=== PATIENT | female | born 1945 | race Caucasian/White ===

== ENCOUNTER 2023-09-22 16:55 | Emergency (ER) | payer OTHER, SELFPAY ==
[2023-09-22 16:57] VITALS: BP 145/93
[2023-09-22 17:34] LABS: % Eosinophils 2.5 % (0-6); % Immature Granulocytes 0.2 % (0-0.5); % Lymphocytes 24.5 % (20.5-51.1); % Monocytes 10.6 % (1.7-9.3); % Neutrophils 61.2 % (42.2-75.2); Absolute Basophils 0.1 10^3/uL (0-0.2); Absolute Eosinophils 0.2 10^3/uL (0-0.7); Absolute Lymphocytes 2.1 10^3/uL (1.2-3.4); Absolute Monocytes 0.9 10^3/uL (0.1-0.6); Absolute Neutrophils 5.2 10^3/uL (1.4-6.5); Hematocrit 32.7 % (37.0-47.0); Hemoglobin 10.7 g/dL (12.0-16.0); Mean Corp Hgb Conc. 32.7 g/dL (33.0-37.0); Mean Corpuscular Hgb 26.2 pg (27.0-31.0); Mean Platelet Volume 9.5 fL (7.4-10.4); Nucleated Red Blood Cells % 0 %; Platelet Count 325 10^3/uL (130-400); Red Blood Cell Count 4.09 10^6/uL (4.20-5.40); Red Cell Dist. Width 16.5 % (11.5-14.5); White Blood Cell Count 8.4 10^3/uL (4.8-10.8)
[2023-09-22 17:45] LABS: INR 1.05; PT 13.8 Sec (11.4-14.6)
[2023-09-22 17:51] LABS: ALT (SGPT) 20 U/L (0-35); AST (SGOT) 31 U/L (14-36); Albumin 4.5 g/dl (3.5-5.0); Alkaline Phosphatase 75 U/L (38-126); Blood Urea Nitrogen 17 mg/dl (7-17); Calcium 9.9 mg/dl (8.4-10.2); Carbon Dioxide 25 mmol/L (22-30); Chloride 102 mmol/L (98-107); Glucose 92 mg/dl (70-99); Potassium 4.5 mmol/L (3.5-5.1); Sodium 136 mmol/L (135-145); Total Bilirubin 0.6 mg/dl (0.2-1.3); Total Protein 7.2 g/dl (6.3-8.2); eGFR > 60.00
--- NOTE | 2023-09-22 18:33 | ED.GENMED ---
History of Present Illness
General
Chief Complaint: DVT/Possible Blood Clot
Source: patient
Exam Limitations: none
Time Seen by Provider: 09/22/23 17:56
History of Present Illness
History of Present Illness:
This is a 78 year old female that comes in with c/o left arm swelling. State that 2 days ago she started with swelling in the left arm. State that she had lymph edema in the past and she wear a sleeve. State that on Wednesday she went to get a message
of the left arm. States that she felt that there was fluid collection under the left arm at the base of her arm pit. Patient went to the Plastic surgeon and she was sent today to see erasmo Swenson. States that they did an exam and she used an US and
told her she was concerned that there was a clot in the left carotid. States that she was told to come to the ER for US of the left arm and CTA. States that she randolph diarrhea as she just found out that she has infections colitis. Denies any fever,
chills, chest pain, SOB, abd pain, nausea, vomiting, headache, dizziness, urinary burning,
Past History
Past History
ED Past Medical History: Hypercholesterolemia and Other (Coronary artery dissection, PE/DVT)
ED Past Surgical History: Appendectomy and Other (Bilateral mastectomy Breast implants and then removal, Neuromuscular stimulator)
Social History
Tobacco: Former smoker
Alcohol: None
Personal:
Living: with family
Review of Systems
Review of Systems
All Other Systems: ROS reviewed and negative except as documented in HPI and ROS
Constitutional: Reports no symptoms; Denies fever or chills
EENT: Reports no symptoms
Respiratory: Reports no symptoms; Denies cough or trouble breathing
Cardiac: Reports no symptoms; Denies chest pain
ABD/GI: Reports diarrhea; Denies abdominal pain, nausea or vomiting
: Reports no symptoms; Denies dysuria, frequency or urgency
Musculoskeletal: Reports edema (Left arm swelling)
Skin: Reports no symptoms
Neurological: Reports no symptoms; Denies dizzy or headache
Psychiatric: Reports no symptoms
Phy Exam
General Physical Exam
General Presentation: well appearing and no apparent distress
General age: appears stated age
General Skin: warm and dry
General Habitus: elderly
General Mental: alert
General Hydration: appears well hydrated
ENT Exam
ENT Exam: TM's normal, pharynx normal and neck supple
Eye Exam
Eye Exam: EOMI
Cardiovascular Exam
Cardiovascular Exam: regular rate/rhythm, no murmur and normal peripheral pulses
Pulmonary Exam
Pulmonary Exam: lungs clear, no respiratory distress, no rales, chest non tender, no crackles, no rhonchi, no wheezing and no cough
Gastrointestinal Exam
Gastrointestinal Exam: normal bowel sounds, non tender, soft, no organomegaly, no pulsatile mass and non distended
Musculoskeletal Exam
Musculoskeletal Exam: full ROM
Skin Exam
Skin Exam: normal color, warm/dry, no rash and no petechia
Psychiatric Exam
Psychiatric Exam: normal mood/affect
Course
Orders/Labs/Results
Orders:
Orders
09/22/23 17:02
Electrocardiogram (*1) Urgent
Reason for Study: Chest Pain
EKG- Treatment ONCE
09/22/23 17:28
Complete Blood Count/With Diff Urgent
Comprehensive Metabolic Panel Urgent
Prothrombin Time Urgent
09/22/23 18:32
CT Head & Neck Angio W/wo IV Urgent
Comment:
Reason For Exam: concern for occlusion left carotid
US Periph Venous UPPER Ext LT Urgent
Reason For Exam: Swelling
Abnormal Lab Results
09/22/23
17:28
RBC 4.09 L 10^6/uL
(4.20-5.40)
Hgb 10.7 L g/dL
(12.0-16.0)
Hct 32.7 L %
(37.0-47.0)
MCV 80.0 L fL
(81.0-99.0)
MCH 26.2 L pg
(27.0-31.0)
MCHC 32.7 L g/dL
(33.0-37.0)
RDW 16.5 H %
(11.5-14.5)
Absolute Monos (auto) 0.9 H 10^3/uL
(0.1-0.6)
Monocytes % 10.6 H %
(1.7-9.3)
09/22/23 17:28
09/22/23 17:28
H/H low. Anemia, Pt 13.8 with INR 1.05
Vital Signs
Initial and Last Documented VS:
Initial Vital Signs
Temp Pulse Resp BP Pulse Ox
97.8 F 92 20 145/93 97
09/22/23 16:57 09/22/23 16:57 09/22/23 16:57 09/22/23 16:57 09/22/23 16:57
Last Documented Vital Signs
Temp Pulse Resp BP Pulse Ox
97.8 F 92 20 145/93 97
09/22/23 16:57 09/22/23 16:57 09/22/23 16:57 09/22/23 16:57 09/22/23 16:57
MDM/Problems Addressed
Differential Diagnosis Includes:
DVT. carotid occlusion
MDM/Problems Addressed:
This is a 78 year old female that comes in with c/o left arm swelling in the past 2 days. states that she went to see Dr. Swenson and was sent in for US of the arm and CTA of the head and neck for concern of Eliquis failure.
Will get lab, US and CTA of head and neck.
Back into see patient. Explained that her US and CTA of the head is neck are normal. There is no sign of occlusion. Patient to follow up with Dr Swenson. Will attempt to call Dr. Swenson.
Unable to reach Dr. Swenson.
Chronic conditions affecting care:
PE/DVT, Coronary artery dissection
Acute Exacerbation and/or Progression of Chronic Illness:
NA
*Radiology
Radiology exam reviewed: radiology read reviewed (US left arm-No evidence of deep venous thrombosis in the left upper extremity. CTA head and neck-No significant vascular occlusion, Aneurysm or dissection. )
*Pulse Oximetry
Patient hypoxic: no
*EKG
Interpreted by ED Provider?: Yes
Heart Rate: 76
Rate: normal
Rhythm: sinus
[place]: normal axis
Interval: normal interval
QRS Pattern: normal QRS
Ischemia: no ischemia
*Surface Grinding Machine Hand Interpretation
Rate: Surface Grinding Machine Hand- N/A
*Critical Care Note
Total Time (30-74mins, 75-104mins- exclusive of procedures): Not Applicable
ED Attending Note
-
Portions of this chart may have been created with voice recognition software.� Occasional wrong word or��sound alike� substitutions may have occurred due to the inherent limitations of voice recognition software.
Discharge Plan
Departure
Patient Disposition: Home (Routine Discharge)
Date of Disposition: 09/22/23
Time of Disposition: 20:14
Patient with high blood pressure during this ER visit?: Yes
Condition: Good
Covid-19: Not Applicable
Discharge Problem:
Lymph edema left arm
Instructions: Lymphedema (DC), BLOOD PRESSURE
Prescriptions:
No Action
celecoxib 200 mg capsule
200 mg PO HS
atenolol 25 mg tablet
25 mg PO HS
cyanocobalamin (vitamin B-12) 1,000 mcg Tablet
1,000 mcg PO DAILY
levothyroxine 88 mcg tablet
88 mcg PO DAILY
pantoprazole 40 mg tablet,delayed release (DR/EC)
40 mg PO BID
Pepto-Bismol 262 mg Tablet
262 mg PO BID
zolpidem 5 mg tablet
5 mg PO HSPRN PRN (Reason: sleep)
diphenhydramine-acetaminophen [Tylenol PM Extra Strength] 25-500 mg Tablet
2 tab PO HS PRN (Reason: neuropathy)
rosuvastatin 5 mg tablet
5 mg PO HS
duloxetine 60 mg capsule,delayed release(DR/EC)
60 mg PO HS
Eliquis 2.5 mg tablet
2.5 mg PO BID
Referrals:
Ankita Gay, [Family Provider] - Call in 1-3 days for appt
Activity Restrictions/Additional Instructions:
As discussed, your blood work shows that you are anemic. Your US of the left arm is negative for DVT. Your CT angio of the head and neck is negative for any occlusion. Please follow up with Dr Swenson for further evaluation. You may need to wear your
sleve to help decrease the edema. IF YOU HAVE ANY OTHER CONCERNS PLEASE RETURN TO THE EMERGENCY ROOM.
Interventions
Interventions:
*Risk Screen - Suicide Last Done: 09/22/23 16:57
*General Assessment Last Done: 09/22/23 16:57
*Neglect/Abuse Screening Last Done: 09/22/23 16:57
ED- Fall Risk Assessment Last Done: 09/22/23 18:44
*ED COVID-19 Vaccine History Last Done: 09/22/23 18:43
ED- Cardiac Assessment Last Done: 09/22/23 18:44
ED- Pulmonary Assessment Last Done: 09/22/23 18:44
ED-Skin Assessment Last Done: 09/22/23 18:44
Discharge Date and Time
Print Language: FRENCH
[2023-09-22 18:43] VITALS: BMI 31.5
[2023-09-22 20:28] VITALS: BP 137/85
== END 2023-09-22 20:30 | disposition home or self-care (01) ==
LOC: EMR 16:55
PROVIDERS: Emergency Medicine; EMERGENCY PHYSICIAN Emergency Medicine; FAMILY PHYSICIAN Internal Medicine
DX: I89.0 Lymphedema, not elsewhere classified (principal); E78.00 Pure hypercholesterolemia, unspecified; I25.42 Coronary artery dissection; Z86.718 Personal history of other venous thrombosis and embolism; Z87.891 Personal history of nicotine dependence
CPT/HCPCS: 99284; 70496; 70498; 80053; 85025; 85610; 93005; 93971; Q9967

== ENCOUNTER 2023-10-11 16:10 | Inpatient (IN) | payer OTHER, SELFPAY ==
[2023-10-11 12:09] VITALS: BP 120/87
[2023-10-11 13:06] VITALS: BMI 31.4
--- NOTE | 2023-10-11 13:06 | ED.GENMED ---
History of Present Illness
General
Chief Complaint: Skin Problem
Source: patient
Exam Limitations: none
Time Seen by Provider: 10/11/23 12:58
History of Present Illness
History of Present Illness:
See MDM
Past History
Past History
ED Past Medical History: Hypercholesterolemia and Other (Coronary artery dissection, PE/DVT)
ED Past Surgical History: Appendectomy and Other (Bilateral mastectomy Breast implants and then removal, Neuromuscular stimulator)
Social History
Tobacco: Former smoker
Alcohol: None
Personal:
Living: with family
Phy Exam
Physical Exam
Physical Exam:
See MDM
Course
Orders/Labs/Results
Orders:
Orders
10/11/23 13:05
US Periph Venous UPPER Ext LT Urgent
Comment:
Reason For Exam: left arm swelling and pain
10/11/23 13:26
Complete Blood Count/With Diff Urgent
10/11/23 14:00
CeFAZolin 1 GRAM [Ancef] 1 gram in 5 ml IV NOW
10/11/23 14:48
Comprehensive Metabolic Panel Urgent
Abnormal Lab Results
10/11/23 10/11/23
13:26 14:48
RBC 3.95 L 10^6/uL
(4.20-5.40)
Hgb 10.2 L g/dL
(12.0-16.0)
Hct 31.5 L %
(37.0-47.0)
MCV 79.7 L fL
(81.0-99.0)
MCH 25.8 L pg
(27.0-31.0)
MCHC 32.4 L g/dL
(33.0-37.0)
RDW 16.9 H %
(11.5-14.5)
Absolute Monos (auto) 0.9 H 10^3/uL
(0.1-0.6)
Monocytes % 12.5 H %
(1.7-9.3)
Creatinine 1.1 H mg/dL
(0.6-1.0)
10/11/23 13:26
10/11/23 14:48
Vital Signs
Initial and Last Documented VS:
Initial Vital Signs
Temp Pulse Resp BP Pulse Ox
98.2 F 88 20 120/87 96
10/11/23 12:09 10/11/23 12:09 10/11/23 12:09 10/11/23 12:09 10/11/23 12:09
Last Documented Vital Signs
Temp Pulse Resp BP Pulse Ox
98.2 F 88 20 120/87 96
10/11/23 12:09 10/11/23 12:10/11/23 12:10/11/23 12:10/11/23 12:09
MDM/Problems Addressed
Differential Diagnosis Includes:
HPI and MDM Narrative:
78-year-old female presenting for evaluation of left arm swelling and redness. This has been ongoing for the past several weeks or so. She is now noticing swelling to her neck and her left face. Patient has history of breast cancer and prior
mastectomy. She has a history of lymphedema. Her doctor spoke to her lymphedema doctor who instructed her to come to the hospital for IV antibiotics
Given her history of lymphedema, will start IV antibiotics. The redness does extend from left hand all the way up to her armpit. Will obtain ultrasound to rule out DVT
Physical exam
General: Well appearing and non-toxic
HEENT: protecting airway
Neck: supple. No significant lymphadenopathy noted
CV: No evidence of cyanosis
Resp: No accessory muscle use
Abd: Non-distended
Extremities: Swelling and erythema from left wrist to left armpit. Distal pulses intact
Neuro: alert
Psych: Normal affect
Skin: Intact
Problems Addressed including Acute and Chronic Conditions affecting care:
1. Left arm cellulitis
Acuity: acute
Prognosis: stable
Details: Given her history of lipedema and the extent of the cellulitis, will start IV Ancef. Will rule out DVT and ultimately admit given her prior history
Differential Diagnosis (but not limited to): DVT, cellulitis
Testing considered: Blood cultures
Drug therapy (if applicable): OTC meds, please see d/c instruction regarding Rx drugs
Amount and/or Complexity of Data Reviewed
Clinical info obtained from: Patient
External data reviewed: N/A
Labs I independently reviewed (but not limited to): WBC normal
Radiology: ultrasound report reviewed
Pulse Ox: not hypoxic
EKG independently reviewed: N/A
[place] Helper: N/A
Critical Care: N/A
Risk of Complication:
Social Determinants of health: Good social support
Discussed with other providers: N/A
Escalation of Care includes Admit/Obs: After being observed in the Emergency Department, pt stable for discharge.
Occasional wrong word or 'sound a like' substitutions may have occurred due to the inherent limitations of voice recognition software. Read the chart carefully and recognize, using context, where substitutions have occurred.
*Critical Care Note
Total Time (30-74mins, 75-104mins- exclusive of procedures): Not Applicable
ED Attending Note
-
Portions of this chart may have been created with voice recognition software.� Occasional wrong word or��sound alike� substitutions may have occurred due to the inherent limitations of voice recognition software.
Discharge Plan
Departure
Patient Disposition: Admit
Date of Disposition: 10/11/23
Time of Disposition: 15:23
Admit to: Med/Surg
Presentation/result/management discussed w/ accepting MD/DO: Hospitalist
Discharge Problem:
Cellulitis
Prescriptions:
No Action
celecoxib 200 mg capsule
200 mg PO HS
atenolol 25 mg tablet
25 mg PO HS
cyanocobalamin (vitamin B-12) 1,000 mcg Tablet
1,000 mcg PO DAILY
levothyroxine 88 mcg tablet
88 mcg PO DAILY
pantoprazole 40 mg tablet,delayed release (DR/EC)
40 mg PO BID
zolpidem 5 mg tablet
5 mg PO HSPRN PRN (Reason: sleep)
diphenhydramine-acetaminophen [Tylenol PM Extra Strength] 25-500 mg Tablet
2 tab PO HSPRN PRN (Reason: neuropathy)
rosuvastatin 5 mg tablet
5 mg PO HS
duloxetine 60 mg capsule,delayed release(DR/EC)
60 mg PO HS
Eliquis 2.5 mg tablet
2.5 mg PO BID
Referrals:
Ankita Gay DO [Family Provider] -
Interventions
Interventions:
*Risk Screen - Suicide Last Done: 10/11/23 12:09
*General Assessment Last Done: 10/11/23 12:09
*Neglect/Abuse Screening Last Done: 10/11/23 12:09
*ED COVID-19 Vaccine History Last Done: 10/11/23 13:08
Discharge Date and Time
Print Language: MONGOLIAN
[2023-10-11 13:36] LABS: % Basophils 0.8 % (0-2); % Eosinophils 2.2 % (0-6); % Immature Granulocytes 0.3 % (0-0.5); % Lymphocytes 22.3 % (20.5-51.1); % Monocytes 12.5 % (1.7-9.3); % Neutrophils 61.9 % (42.2-75.2); Absolute Basophils 0.1 10^3/uL (0-0.2); Absolute Eosinophils 0.2 10^3/uL (0-0.7); Absolute Lymphocytes 1.6 10^3/uL (1.2-3.4); Absolute Monocytes 0.9 10^3/uL (0.1-0.6); Absolute Neutrophils 4.5 10^3/uL (1.4-6.5); Hematocrit 31.5 % (37.0-47.0); Hemoglobin 10.2 g/dL (12.0-16.0); Mean Corp Hgb Conc. 32.4 g/dL (33.0-37.0); Mean Corpuscular Hgb 25.8 pg (27.0-31.0); Mean Corpuscular Volume 79.7 fL (81.0-99.0); Nucleated Red Blood Cells % 0 %; Platelet Count 279 10^3/uL (130-400); Red Blood Cell Count 3.95 10^6/uL (4.20-5.40); Red Cell Dist. Width 16.9 % (11.5-14.5); White Blood Cell Count 7.3 10^3/uL (4.8-10.8)
[2023-10-11] MEDS: ANCEF 5 IV (14:24)
[2023-10-11 15:00] VITALS: BP 118/79
[2023-10-11 15:14] LABS: ALT (SGPT) 14 U/L (0-35); AST (SGOT) 24 U/L (14-36); Albumin 4.2 g/dl (3.5-5.0); Alkaline Phosphatase 74 U/L (38-126); Blood Urea Nitrogen 17 mg/dl (7-17); Calcium 9.3 mg/dl (8.4-10.2); Carbon Dioxide 26 mmol/L (22-30); Chloride 102 mmol/L (98-107); Estimated Creatinine Clearance 48 ml/min; Glucose 98 mg/dl (70-99); Potassium 4.8 mmol/L (3.5-5.1); Sodium 137 mmol/L (135-145); Total Bilirubin 0.4 mg/dl (0.2-1.3); Total Protein 6.8 g/dl (6.3-8.2); eGFR 51.75
--- NOTE | 2023-10-11 15:25 | HPS.HSE ---
Family Physician
<TRESA Araujo - Last Filed: 10/11/23 15:51>
-
Family Physician: Ankita Gay
Chief Complaint
<TRESA Araujo - Last Filed: 10/11/23 15:51>
-
left UE redness, swelling
History of Present Illness
78-year-old with past medical history for DVT, PE, left breast cancer, hyperlipidemia presented to us with left arm redness and swelling, warm to touch for past 3 weeks. Patient stated weakness. denied fever, chills, chest pain. stated sob due to
weakness. her swelling and redness getting worse. denied [place],dizzy or syncopal episode. denied abdominal pain,n,v,. denied dysuria or hematuria. Patient stated chronic diarrhea for past few months. Had a colonoscopy with findings of polyps.
Medical History
<TRESA Araujo - Last Filed: 10/11/23 15:51>
Past Medical History
Past Medical History: Reports Other
Additional Past Medical History:
PE
DVT
Hypertension
Left breast cancer
Hiatal hernia stroke
Thyroid disease
Left breast implant removed
Past Surgical History: Reports Other
Additional Past Surgical History:
Carotid artery dissection
Right mastectomy
Social History
Tobacco: Former Smoker
Alcohol: None
Drug: None
Family History
Family History: Not pertinent
Allergies / Home Medications
Allergies reflects when Allergies were last updated in [employer] [facility].
Home Medications with original date entered in [employer] [facility]
Allergy/Medication List:
Allergies
Allergy/AdvReac Type Severity Reaction Status Date / Time
No Known Allergies Allergy Verified 10/11/23 12:14
Home Medications
apixaban 2.5 mg tablet (Eliquis) 2.5 mg PO BID 09/22/23
atenolol 25 mg tablet 25 mg PO HS 09/22/23
celecoxib 200 mg capsule 200 mg PO HS 09/22/23
cyanocobalamin (vitamin B-12) 1,000 mcg tablet 1,000 mcg PO DAILY 09/22/23
diphenhydramine 25 mg-acetaminophen 500 mg tablet (Tylenol PM Extra Strength) 2 tab PO HSPRN PRN neuropathy 09/22/23
duloxetine 60 mg capsule,delayed release 60 mg PO HS 09/22/23
levothyroxine 88 mcg tablet 88 mcg PO DAILY 09/22/23
pantoprazole 40 mg tablet,delayed release 40 mg PO BID 09/22/23
rosuvastatin 5 mg tablet 5 mg PO HS 09/22/23
zolpidem 5 mg tablet 5 mg PO HSPRN PRN sleep 09/22/23
Review of Systems
<TRESA Araujo - Last Filed: 10/11/23 15:51>
-
Constitutional: Reports No Symptoms
EENT: Reports No Symptoms
Respiratory: Reports No Symptoms
Cardiac: Reports No Symptoms
Abdomen/GI: Reports No Symptoms
: Reports No Symptoms
Musculoskeletal: Reports No Symptoms
Skin: Reports No Symptoms and Other (Left upper arm redness and swelling)
Neurological: Reports No Symptoms
Endocrine: Reports No Symptoms
Hematologic/Lymphatic: Reports No Symptoms
Psych: Reports No Symptoms
Physical Exam
<TRESA Araujo - Last Filed: 10/11/23 15:51>
Vital Signs
Vital Signs
Temp Pulse Resp BP Pulse Ox
98.2 F 88 20 120/87 96
10/11/23 12:09 10/11/23 12:09 10/11/23 12:09 10/11/23 12:09 10/11/23 12:09
Physical Exam
General: Well Developed, Well Nourished and No Apparent Distress
HEENT: NormoCephalic, Moist mucous membranes and Atraumatic
Respiratory: Clear
Cardiac: S1/S2 and Regular Rhythm; No Murmur or Rub
GI: Soft, Non Tender, Non Distended and Normal Bowel Sounds; No Organomegaly
Rectal: Deferred by Provider
Musculoskeletal: No Clubbing, No Cyanosis and No Edema
Skin: Rash and Other (Left upper arm red, swollen and warm to touch)
Neuro: Nonfocal/grossly intact
Psych: Calm
Laboratory Results
<TRESA Araujo - Last Filed: 10/11/23 15:51>
-
10/11/23 13:26
10/11/23 14:48
Laboratory Results
Total Bilirubin 0.4 mg/dl (0.2-1.3) 10/11/23 14:48
AST 24 U/L (14-36) 10/11/23 14:48
ALT 14 U/L (0-35) 10/11/23 14:48
Alkaline Phosphatase 74 U/L (38-126) 10/11/23 14:48
Data Reviewed
<TRESA Araujo - Last Filed: 10/11/23 15:51>
-
Diagnostic Radiology: Report Reviewed by me
Lab Data: Labs Reviewed by me
Impression/Plan
<TRESA Araujo - Last Filed: 10/11/23 15:51>
-
# Left arm cellulitis
-No evidence of DVT
-IV Ancef continued
-Tylenol as needed for fever
-ID consulted
# Microcytic anemia
-Hemoglobin stable at 10.2
-No active bleeding
-Continue to monitor
# Acute kidney injury likely dehydration
-Creatinine 1.1
-normal saline x1 bag
-BP in am
# Chronic colitis
# History of breast cancer/history of lymphedema
-S/p mastectomy
# History of PE/DVT
-Eliquis continued
# Essential hypertension
-Continue atenolol with hold parameters
# Depression/anxiety
-Duloxetine continued
# Hypothyroidism
-Levothyroxine
# GERD
-Pantoprazole continued
# Hyperlipidemia
-Rosuvastatin continued
# Insomnia
-Zolpidem continued
#CODE STATUS
-Full code
<Chucho Perea MD - Last Filed: 10/11/23 16:58>
-
# Left arm cellulitis
-No evidence of DVT
-IV Ancef continued
-Tylenol as needed for fever
-ID consulted
# Microcytic anemia
-Hemoglobin stable at 10.2
-No active bleeding
-Continue to monitor
# Acute kidney injury likely dehydration
-Creatinine 1.1
-normal saline x1 bag
-BP in am
# Chronic colitis
# History of breast cancer/history of lymphedema
-S/p mastectomy
# History of PE/DVT
-Eliquis continued
# Essential hypertension
-Continue atenolol with hold parameters
# Depression/anxiety
-Duloxetine continued
# Hypothyroidism
-Levothyroxine
# GERD
-Pantoprazole continued
# Hyperlipidemia
-Rosuvastatin continued
# Insomnia
-Zolpidem continued
#CODE STATUS
-Full code
[2023-10-11 16:53] VITALS: BMI 31.6
[2023-10-11 17:22] VITALS: BP 136/87
[2023-10-11] MEDS: NSS 1000 IV (18:02)
[2023-10-11] MEDS: ELIQUIS 2.5 MG PO (19:48)
[2023-10-11] MEDS: PROTONIX 40 MG PO (19:48)
[2023-10-11] MEDS: ANCEF 10 IV (19:49)
[2023-10-11] MEDS: CYMBALTA DELAYED RELEASE 60 MG PO (21:15)
[2023-10-11] MEDS: TENORMIN 25 MG PO (21:15)
[2023-10-11] MEDS: CRESTOR 5 MG PO (21:21)
[2023-10-11 23:00] VITALS: BP 99/61
[2023-10-12] MEDS: ANCEF 10 IV ×3 (03:34→21:08)
[2023-10-12] MEDS: SYNTHROID 88 MCG PO (06:07)
[2023-10-12 07:28] VITALS: BP 110/80
--- NOTE | 2023-10-12 07:43 | CON.CAR ---
Addendum entered and electronically signed by Sohan Mills MD 10/12/23 12:33:
I saw and examined the patient.
The PHOTO PRINTER or PA's note was reviewed and I agree with the note.
Comment: General: Well developed, well nourished in NAD.
Neck: Supple, no JVD, HJR, carotids +2 B/L, no bruits bilaterally.
Heart: Non displaced PMI, RRR, no murmurs, No S3, S4, no rubs.
Lungs: Clear to auscultation bilaterally, no wheeze, rhonchi, rubs bilaterally,
normal expiratory phase.
Extremities: No clubbing, cyanosis or edema bilaterally.
Neuro: Grossly nonfocal, awake, alert and oriented x3.
Anai Has a history of hypertension, hypothyroidism, TIA in the setting of carotid dissection, breast cancer, PE/DVT. She presented with left upper extremity cellulitis. Cardiology was consulted for shortness of breath. There is no obvious
cardiac reason for her shortness of breath. Chest x-ray and proBNP were okay. Could consider outpatient stress testing if persist. Stable cardiology status for discharge. will sign off
Original Note:
Consultation
Consultation Request
Date/Time Consultation Requested: 10/12/2023
Date/Time Consultation Performed: 10/12/2023
Requesting Provider: Dr. Chucho Perea
Performing Provider: Penelope Chavez PA-C
Reason for Consultation: SOB
Medical History
-
History of Present Illness:
Patient is a 78-year-old female with past medical history significant for hypertension, hypothyroidism, spinal stenosis, GERD/hiatal hernia, TIA in setting of carotid dissection in 2011, left breast cancer with mastectomy status post chemo
radiation, chronic lymphedema of left upper extremity, prophylactic right mastectomy, bilateral PE and DVT with recurrence off anticoagulation and recommendation of indefinite anticoagulation. Who presents to emergency department 10/11/2023 with
left upper extremity redness and swelling x 3 weeks concerning for cellulitis and was placed on IV antibiotics. Left upper extremity venous Doppler was negative for DVT. Patient also complained of ongoing shortness of breath and fatigue. She
reports this has been ongoing since her diagnosis of pulmonary embolism in January 2023. Her breathing has improved however is not quite back to her baseline. She denies having associated chest pain. She denies shortness of breath at rest,
orthopnea or PND. Shortness of breath happens mostly with moderate or prolonged exertion. EKG demonstrated sinus rhythm with no ischemic changes. Chest x-ray demonstrated subtle linear parenchymal stranding in right upper lobe. There was no
focal dense consolidation, pneumothorax, pleural effusion vascular congestion or cardiomegaly to suggest heart failure. There was moderate to large hiatal hernia. Patient has history of chemotherapy with cardiotoxic agents. Last echocardiogram in
December 2022 showed preserved ejection fraction with mildly elevated pulmonary pressures of 41 mmHg. Cardiology being asked to see patient to exclude heart failure as cause of her symptoms.
PMH:
L breast cancer dx during bilateral breast reduction in 2015
[facility]
status post radiation and chemotherapy(Adriamycin/Cytoxan, triple negative [facility]
recurrence with positive L axillary LNs
Deemed cured since 2022
Elective removal of L breast implant and R mastectomy 12-30-22 at
Chronic LUE lymphedema
Bilateral PE 2017, completed 6 m regimen of apixaban, followed by outpatient Hem HRH, negative w/u, deemed safe to d/c AC, does not recall follow up chest CTA was done prior to discontinuation of AC
Migraines
CVA/TIA in setting of carotid dissection in 2011 during yoga class, no neurologic deficits afterwards
Hypertension
Hyperlipidemia
GERD/Hiatal hernia
Hypothyroidism
Chronic anemia
Chronic colitis/diarrhea
Spinal stenosis w/ peripheral neuropathy: has L-spine electrical stimulator
h/o C diff
Insomnia
Past Medical History
Past Medical History: Other (See HPI)
Past Surgical History: Appendectomy and Other (Left mastectomy October 2015, removal of left breast implant and right mastectomy December 2022, lumbar spine stimulator)
Social History
Tobacco: Former Smoker (smoked for <3 years in her 20's)
Alcohol: None
Drug: None
Personal:
Living: With Family
Employment: Retired (teacher)
Family History
Family History: Other (Mother had heart disease at 84; Father 82 lung CA)
Allergies / Home Medications
Allergy/AdvReac Type Severity Reaction Status Date / Time
No Known Allergies Allergy Verified 10/11/23 12:14
�Medication �Instructions �Recorded �Confirmed �Type
apixaban 2.5 mg tablet (Eliquis) 2.5 mg PO BID 09/22/23 10/11/23 History
atenolol 25 mg tablet 25 mg PO HS 09/22/23 10/11/23 History
celecoxib 200 mg capsule 200 mg PO HS 09/22/23 10/11/23 History
cyanocobalamin (vitamin B-12) 1,000 mcg PO DAILY 09/22/23 10/11/23 History
1,000 mcg tablet
diphenhydramine 25 2 tab PO HSPRN PRN neuropathy 09/22/23 10/11/23 History
mg-acetaminophen 500 mg tablet
(Tylenol PM Extra Strength)
duloxetine 60 mg capsule,delayed 60 mg PO HS 09/22/23 10/11/23 History
release
levothyroxine 88 mcg tablet 88 mcg PO DAILY 09/22/23 10/11/23 History
pantoprazole 40 mg tablet,delayed 40 mg PO BID 09/22/23 10/11/23 History
release
rosuvastatin 5 mg tablet 5 mg PO HS 09/22/23 10/11/23 History
zolpidem 5 mg tablet 5 mg PO HSPRN PRN sleep 09/22/23 10/11/23 History
Review of Systems
-
History Source: Patient
All other systems: Negative unless noted
Physical Exam
Vital Signs
Temp Pulse Resp BP Pulse Ox
98.2 F 82 17 110/80 95
10/12/23 07:28 10/12/23 07:28 10/12/23 07:28 10/12/23 07:28 10/12/23 07:28
GEN: No distress, awake, Ox3, sitting in bed on room air
HEENT: supple, anicteric, mmm
LUNGS: CTA, no wheezes/rales
CV: Reg, S1/S2, 1/6 syst RSB murmur, no rub or gallop
ABD: soft, BS+, NT/ND
EXT: No edema, no clubbing or cyanosis; left upper extremity with lymphedema and mild erythema
NEURO: Gross non-focal
SKIN: No rash,, warm, dry, pink
Lab Results
Pending
Impression / Plan
-
PCP: Ankita Gay
Cardiology: None prior to arrival, initial consult Dr. Mills
Impression:
Presented 10/11/2023 with left arm redness and swelling x 3 weeks
Left arm cellulitis
Shortness of breath
L breast cancer dx during bilateral breast reduction in 2015
s/p L mastectomy 10[facility]30-15 [facility]
status post radiation and chemotherapy(Adriamycin/Cytoxan, triple negative [facility]
recurrence with positive L axillary LNs
Deemed cured since 2022
Elective removal of L breast implant and R mastectomy 12-30-22 at
Chronic LUE lymphedema
Bilateral PE 2017, completed 6 m regimen of apixaban, followed by outpatient Hem HRH, negative w/u, deemed safe to d/c AC, does not recall follow up chest CTA was done prior to discontinuation of AC
Migraines
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
CVA/TIA 2011 in setting of carotid dissection in 2011 during yoga class, no neurologic deficits afterwards
GERD/Hiatal hernia
Hypertension
Hyperlipidemia
Hypothyroidism
Chronic anemia
Chronic colitis/diarrhea
Spinal stenosis w/ peripheral neuropathy: has L-spine electrical stimulator
h/o C diff
Insomnia
Echo February 25, 2023: EF 62%, mild concentric LVH, mild MR, mild TR, PAP 41 mmHg
PFT 07/01/23: FVC 3.33/111%, FEV1 2.43/108%, ratio 73. TLC 5.67/108%, DLCO 15.18/71%.6 MWT:������
6mw 04/22/23- RA 97%, HR 78bpm. Ambulated 1050 feet and maintained 96-97% on RA. HR increased to 109bpm.
Plan:
-Presented 10/11/2023 with left arm redness and swelling x 3 weeks with concern for cellulitis. Left UE doppler was negative DVT. Patient was placed on IV antibiotics.
-She also complained of SOB that has been ongoing since her diagnosis of pulmonary embolism in January 2023. Although shortness of breath has improved but is still not back to baseline.
-Chest x-ray does not suggest heart failure. Concern for possible pneumonia and already being treated with IV antibiotics for cellulitis and symptoms do not suggest pneumonia. There was also note of moderate to large hiatal hernia which could be
contributing to her shortness of breath
-Will check proBNP, TSH
-She does have murmur appreciated on examination. Check echocardiogram, last echo in January 2023 showed normal ejection fraction with PAP of 41 mmHg in setting of PEs.
-Could consider outpatient ischemic evaluation pending, although low suspicion of ischemic heart disease.
-Patient on indefinite/chronic anticoagulation with Eliquis 2.5 mg twice a day at recommendation of oncology/hematology after she had recurrent DVT/PE in 2022. Unlikely patient has recurrent PE based on ongoing symptoms.
-Suspect shortness of breath multifactorial given prior history of chest radiation, moderate to large hiatal hernia, anemia, prior history of PEs.
-Hemoglobin 10.2, Previous hemoglobin in January 2023 was 12. She reports she did have a colonoscopy recently and was diagnosed with colitis and had polypectomy. Getting IV PPI. Defer workup to primary service. Patient also has follow-up with
heme-onc next week as outpatient
HPI 10/12/2023:
Patient is a 78-year-old female with past medical history significant for hypertension, hypothyroidism, spinal stenosis, GERD/hiatal hernia, TIA in setting of carotid dissection in 2012, left breast cancer with mastectomy status post chemo
radiation, chronic lymphedema of left upper extremity, prophylactic right mastectomy, bilateral PE and DVT with recurrence off anticoagulation and recommendation of indefinite anticoagulation. Who presents to emergency department 10/11/2023 with
left upper extremity redness and swelling x 3 weeks concerning for cellulitis and was placed on IV antibiotics. Left upper extremity venous Doppler was negative for DVT. Patient also complained of ongoing shortness of breath and fatigue. She
reports this has been ongoing since her diagnosis of pulmonary embolism in January 2023. Her breathing has improved however is not quite back to her baseline. She denies having associated chest pain. She denies shortness of breath at rest,
orthopnea or PND. Shortness of breath happens mostly with moderate or prolonged exertion. EKG demonstrated sinus rhythm with no ischemic changes. Chest x-ray demonstrated subtle linear parenchymal stranding in right upper lobe. There was no
focal dense consolidation, pneumothorax, pleural effusion vascular congestion or cardiomegaly to suggest heart failure. There was moderate to large hiatal hernia. Patient has history of chemotherapy with cardiotoxic agents. Last echocardiogram in
December 2022 showed preserved ejection fraction with mildly elevated pulmonary pressures of 41 mmHg. Cardiology being asked to see patient to exclude heart failure as cause of her symptoms.
Data Reviewed
-
EKG: Report Reviewed by me, Discussed with Physician and Discussed with Patient
Radiology: Report Reviewed by me, Discussed with Physician and Discussed with Patient
Labs: Labs Reviewed by me, Discussed with Physician, Discussed with Nurse and Discussed with Family
Old Records: Reviewed
[2023-10-12] MEDS: ELIQUIS 2.5 MG PO ×2 (08:32→21:09)
[2023-10-12] MEDS: VITAMIN B-12 1000 MCG PO (08:32)
[2023-10-12] MEDS: PROTONIX 40 MG PO ×2 (08:32→21:09)
--- NOTE | 2023-10-12 08:54 | W.PN.HOSP.TC ---
Today's Communication/Plan
-
IVAtb
ID consult
Cards consult
Assessment / Plan
Assessment / Plan
NAD, resting comfortably in bed
Scleral anicteric
Moist mucous membranes
No JVD
CTA bilateral
Normal S1-S2 no murmurs
Soft nontender nondistended bowel sounds active
No peripheral pitting edema
Moves extremities spontaneously
AAOx3
Left arm cellulitis
-DVT study negative
-started on ancef
- - Unfortunately unable to obtain bcx as atb has been provided therefore, yield of culture will be subpar/or no growth
-ID consulted for this reason
BRENNAN
-CXR - possible post radiation changes, unlikely pna as no cough/fever/hypoxia
-EKG - SR
-Continue AC, does not miss a dose
-Monitor on tele
-Trial Albuterol nebs
-Cards consult
VTE hx
-Continue AC at 2.5mg bid
Breast CA
-Continue outpatient follow up with Onco
Elevated Cr
-resolved. no further ivf needed
HTN
-Continue antihypertensives with hold parameters
Hypothyroidism
-Continue levothyroxine
HLD
-Continue crestor
Anticipated Discharge: 24 - 48 hours
Subjective/Interval History
-
Date of Service: October 12, 2023
seen and examined. no new complaitns. no aucte overnight events
in good spirits
asking if she would be going home today
reviewed cxr and ekg with her
notified her that cardiology and id would be seeing her today.
tolerating iv ancef well
Objective Data
-
Labs:
Laboratory Results
10/12/23
08:42
WBC Pending
Hgb Pending
Hct Pending
Plt Count Pending
Sodium Pending
Potassium Pending
Chloride Pending
Carbon Dioxide Pending
BUN Pending
Creatinine Pending
Glucose Pending
Calcium Pending
Vital Signs:
Vital Signs
Temp Pulse Resp BP Pulse Ox
98.2 F 82 17 110/80 95
10/12/23 07:28 10/12/23 07:28 10/12/23 07:28 10/12/23 07:28 10/12/23 07:28
I&O
10/11/23 10/12/23 10/13/23
06:59 06:59 06:59
Intake Total 960 / 960
Balance 960 / 960
[2023-10-12 09:12] LABS: Hematocrit 27.4 % (37.0-47.0); Hemoglobin 8.7 g/dL (12.0-16.0); Mean Corp Hgb Conc. 31.8 g/dL (33.0-37.0); Mean Corpuscular Hgb 25.4 pg (27.0-31.0); Mean Corpuscular Volume 79.9 fL (81.0-99.0); Platelet Count 239 10^3/uL (130-400); Red Blood Cell Count 3.43 10^6/uL (4.20-5.40); Red Cell Dist. Width 16.8 % (11.5-14.5); White Blood Cell Count 5.7 10^3/uL (4.8-10.8)
[2023-10-12 09:28] LABS: NT-proBNP 344 pg/ml
[2023-10-12 09:37] LABS: Blood Urea Nitrogen 15 mg/dl (7-17); Calcium 7.3 mg/dl (8.4-10.2); Carbon Dioxide 21 mmol/L (22-30); Chloride 109 mmol/L (98-107); Estimated Creatinine Clearance 66 ml/min; Glucose 82 mg/dl (70-99); Sodium 138 mmol/L (135-145); eGFR > 60.00
[2023-10-12 09:41] LABS: Potassium 3.6 mmol/L (3.5-5.1)
[2023-10-12 11:25] LABS: TSH Reflex To Free T4 0.76 uIU/ml (0.47-4.68)
--- NOTE | 2023-10-12 13:18 | CON.ID ---
Consultation
-
Date/Time Consultation Requested: October 11, 2023 1654
Date/Time Consultation Performed: October 12, 2023 1320
Requesting Provider: Matias GTZ
Performing Provider: Dr. Latosha Brambila
Reason for Consultation: Left upper extremity cellulitis
Chief Complaint / Past History
Chief Complaint
left arm swelling
History of Present Illness
78-year-old female with history of left breast cancer status post mastectomy, chemoradiation currently on remission, left upper extremity lymphedema for which she goes to lymphedema clinic who reports that she developed persistent left upper
extremity edema. Initially edema started on her hand which eventually improved but then her forearm and upper arm became edematous. About 4 days ago she noted redness on the left arm which was new. She therefore came to the ER yesterday. No
fevers or chills. Venous ultrasound no DVT. She was started on cefazolin. She reports edema is the same. Redness is the same. No trauma. No wounds. No fevers or chills.
Past History
Additional Past Medical History:
Hypertension
Hypothyroidism
PE/DVT
Recurrent left breast cancer status post mastectomy, chemo/XRT, on remission.
History of left breast implant removal (12/2022)
Prophylactic right mastectomy(12/2022)
Left upper extremity lymphedema
TIA/Carotid artery dissection s/p repair (2011)
Chronic colitis
Depression/anxiety
Insomnia
spinal stenosis with stimulator implant
Appendectomy
Allergy History:
No Known Allergies Allergy (Verified 10/11/23 12:14)
Medications Reviewed: Yes
Current Antibiotics:
cefazolin
Social History
Tobacco: Former Smoker
Alcohol: None
Drug: None
Personal:
Family History
Family History: Not Pertinent
Review of Systems
Review of Systems
General: Negative Fever, Chills or Change in Appetite
HEENT: Negative Sinus Problems or Headache
Respiratory: Negative Dyspnea or Cough
Gasteroenterology: Other (no diarrhea); Negative Nausea or Vomiting
Genital / Urological: Negative Dysuria or Flank Pain
Endocrine: Negative Weakness
Neurological: Negative Headache
All systems: All other systems were reviewed and were negative
Vital Signs
Temp Pulse Resp BP Pulse Ox
98.2 F 82 17 110/80 95
10/12/23 07:28 10/12/23 07:28 10/12/23 07:28 10/12/23 07:28 10/12/23 07:28
Physical Exam
Physical Exam
Constitutional: No Acute Distress and Comfortable
Eyes: No Conjunctival Hemorrhage and Sclera Anicteric
Cardiovascular: Regular Rate and S1/S2
Pulmonary: Clear
Gastrointestinal: Soft, Non Tender, Non Distended and Normal Bowel Sounds
Extremities: Edema (LUE upper arm to forearm 3+, mild erythema on vental side of LUE, minimal warmth)
Neurological: AO x 3
Lab / Diagnostic Study Results
10/12/23 08:42
10/12/23 08:42
Abs Immat Gran (auto) 0.0 10^3/uL (0-0.05) 10/11/23 13:26
Absolute Neuts (auto) 4.5 10^3/uL (1.4-6.5) 10/11/23 13:26
Absolute Lymphs (auto) 1.6 10^3/uL (1.2-3.4) 10/11/23 13:26
Absolute Monos (auto) 0.9 10^3/uL (0.1-0.6) H 10/11/23 13:26
Absolute Basos (auto) 0.1 10^3/uL (0-0.2) 10/11/23 13:26
Immature Gran % 0.3 % (0-0.5) 10/11/23 13:26
Neutrophils % 61.9 % (42.2-75.2) 10/11/23 13:26
Lymphocytes % 22.3 % (20.5-51.1) 10/11/23 13:26
Monocytes % 12.5 % (1.7-9.3) H 10/11/23 13:26
Eosinophils % 2.2 % (0-6) 10/11/23 13:26
Basophils % 0.8 % (0-2) 10/11/23 13:26
Microbiology Results
10/11/23 LUE venous US: No evidence of deep venous thrombosis of the left upper extremity or interval change in comparison to recent prior study.
Assessment / Plan
# LUE acute cellulitis
# Left breast cancer with acute on chronic LUE lymphedema exacerbation.
-Apply compression
-Elevate LUE
-Continue cefazolin.
-Follow clinically.
[2023-10-12 15:00] VITALS: BP 130/90
[2023-10-12 15:47] VITALS: BP 130/90
--- NOTE | 2023-10-12 16:26 | CM ---
Alert awake oriented patient who lives with her Griffin at independent living [facility]. She is independent in driving and in all activities of daily living.She was offered VN she declined need.
No VN hx / No SNF history
Pharmacy [facility] [address]
PCP DR Ellis
PLAN Home Declined VN
[2023-10-12] MEDS: CRESTOR 5 MG PO (21:08)
[2023-10-12] MEDS: TENORMIN 25 MG PO (21:09)
[2023-10-12] MEDS: CYMBALTA DELAYED RELEASE 60 MG PO (21:09)
[2023-10-12 23:03] VITALS: BP 102/61
--- NOTE | 2023-10-13 03:01 | DOWNTIME ---
There was a Search Initiatives Client Clerk General Downtime on 10/13/2023 from 0100 to 10/13/2023 at 0255. Downtime documentation of patient's care, including medication administrations, has been reconciled in the electronic record per guidelines. Refer to the
patient's paper chart under the miscellaneous tab to see printed paper medication records and downtime forms.
[2023-10-13] MEDS: SYNTHROID 88 MCG PO (05:12)
[2023-10-13] MEDS: ANCEF 10 IV ×2 (05:12→11:55)
[2023-10-13 06:24] LABS: Hemoglobin 9.8 g/dL (12.0-16.0); Mean Corp Hgb Conc. 31.6 g/dL (33.0-37.0); Mean Corpuscular Hgb 25.4 pg (27.0-31.0); Mean Corpuscular Volume 80.3 fL (81.0-99.0); Platelet Count 276 10^3/uL (130-400); Red Blood Cell Count 3.86 10^6/uL (4.20-5.40); Red Cell Dist. Width 16.8 % (11.5-14.5); White Blood Cell Count 6.3 10^3/uL (4.8-10.8)
[2023-10-13 06:29] LABS: Blood Urea Nitrogen 20 mg/dl (7-17); Calcium 9.5 mg/dl (8.4-10.2); Carbon Dioxide 29 mmol/L (22-30); Chloride 99 mmol/L (98-107); Estimated Creatinine Clearance 44 ml/min; Glucose 100 mg/dl (70-99); Potassium 5.1 mmol/L (3.5-5.1); Sodium 135 mmol/L (135-145); eGFR 46.62
[2023-10-13 07:00] VITALS: BP 118/76
[2023-10-13] MEDS: PROTONIX 40 MG PO (08:21)
[2023-10-13] MEDS: ELIQUIS 2.5 MG PO (08:21)
[2023-10-13] MEDS: VITAMIN B-12 1000 MCG PO (08:21)
--- NOTE | 2023-10-13 08:38 | W.PN.HOSP.TC ---
Today's Communication/Plan
-
final recs from ID
transition to po keflex 500mg qid till 10/16
provide ppx van 125mg bid 10/21
Assessment / Plan
Assessment / Plan
NAD, resting comfortably in bed
Scleral anicteric
Moist mucous membranes
No JVD
CTA bilateral
Normal S1-S2 no murmurs
Soft nontender nondistended bowel sounds active
No peripheral pitting edema
Moves extremities spontaneously
AAOx3
Left arm cellulitis
-DVT study negative
-started on ancefcris able to transition to cefdinir or keflex, appreciate ID input for final atb recs/duration
- - Unfortunately unable to obtain bcx as atb has been provided therefore, yield of culture will be subpar/or no growth
-ID consulted for this reason
BRENNAN
-CXR - possible post radiation changes, unlikely pna as no cough/fever/hypoxia
-EKG - SR
-Continue AC, does not miss a dose
-Monitor on tele
-Trial Albuterol nebs
-Cards following
- - 2d echo, EF wnl, no wma, aortic sclerosis, mild MR, pasp 30-35
VTE hx
-Continue AC at 2.5mg bid
Breast CA
-Continue outpatient follow up with Onco
Elevated Cr
-resolved. no further ivf needed
HTN
-Continue antihypertensives with hold parameters
Hypothyroidism
-Continue levothyroxine
HLD
-Continue crestor
Anticipated Discharge: Within 24 hours
Subjective/Interval History
-
Date of Service: October 13, 2023
Seen and examined. No new complaints. No acute overnight events.
States that she is feeling better. Swelling has improved significantly.
Outpatient follow-up follow-up with oncology and lymphedema specialist
Objective Data
-
Labs:
Laboratory Results
10/13/23
05:15
WBC 6.3
Hgb 9.8 L
Hct 31.0 L
Plt Count 276
Sodium 135
Potassium 5.1 D
Chloride 99
Carbon Dioxide 29
BUN 20 H
Creatinine 1.2 H
Glucose 100 H
Calcium 9.5 D
Vital Signs:
Vital Signs
Temp Pulse Resp BP Pulse Ox
97.9 F 77 18 118/76 95
10/13/23 07:00 10/13/23 07:00 10/13/23 07:00 10/13/23 07:00 10/13/23 07:00
I&O
10/12/23 10/13/23 10/14/23
06:59 06:59 06:59
Intake Total 960 / 960 1660 / 1660
Balance 960 / 960 1660 / 1660
--- NOTE | 2023-10-13 09:34 | CHAP ---
Msgr. Sohan Merino of [facility] in [place] gave Anai the Sacrament of the Sick and Holy Communion at her request on October 11 in the afternoon.
--- NOTE | 2023-10-13 13:00 | W.PN.ID1 ---
Date of Service
Date of Service: October 13, 2023
Today's Communication
Transition cefazolin (d3) to cephalexin 500mg po qid through 10/17/2023
Add prophylactic Vancomycin 125mg po bid through 10/22/2023
Assessment / Plan
# LUE acute cellulitis - improving
# Left breast cancer with acute on chronic LUE lymphedema exacerbation.
-Elevate LUE
-Transition cefazolin (d3) to cephalexin 500mg po qid through 10/17/2023
# h/o C. diff x 2
- Add prophylactic Vancomycin 125mg po bid through 10/22/2023
#Additional Past Medical History:
Hypertension
Hypothyroidism
PE/DVT
Recurrent left breast cancer status post mastectomy, chemo/XRT, on remission.
History of left breast implant removal (12/2022)
Prophylactic right mastectomy(12/2022)
Left upper extremity lymphedema
TIA/Carotid artery dissection s/p repair (2011)
h/o C. diff x 2 in 2018
Depression/anxiety
Insomnia
spinal stenosis with stimulator implant
Appendectomy
Chief Complaint
-: Cellulitis
Subjective / Review of Systems
left arm much improved. pt reports h/o C. diff and concern about recurrence while on abx.
Vital Signs / Physical Exam
Vital Signs
Vital Signs
Temp Pulse Resp BP Pulse Ox
97.9 F 77 18 118/76 95
10/13/23 07:00 10/13/23 07:00 10/13/23 07:00 10/13/23 07:00 10/13/23 07:00
Physical Exam
Constitutional: No Acute Distress
Cardiovascular: Regular Rate and S1/S2
Pulmonary: Clear
Gastrointestinal: Soft and Non Tender
Extremities: Edema (LUE edema decreased) and Erythema (LUE erythema resolving)
Objective Data
Lab Data
Lab Results
10/13/23 05:15
10/13/23 05:15
Estimated Creat Clear 44 ml/min 10/13/23 05:15
Total Bilirubin 0.4 mg/dl (0.2-1.3) 10/11/23 14:48
AST 24 U/L (14-36) 10/11/23 14:48
ALT 14 U/L (0-35) 10/11/23 14:48
Alkaline Phosphatase 74 U/L (38-126) 10/11/23 14:48
Most recent labs reviewed.
10/11/23 LUE venous US: No evidence of deep venous thrombosis of the left upper extremity or interval change in comparison to recent prior study.
Care Review
Plan reviewed with: Physician (Dr. Hesham Perea)
--- NOTE | 2023-10-13 13:46 | W.DCSUMMARY ---
Discharge Summary
Discharge Data
Date of Admission: 10/11/23
Date of Discharge: 10/13/23
-
Pending Results: No
Hospital Course
78 female VTE left-sided breast cancer s/p chemoradiation hyperlipidemia presenting for ongoing worsening redness and swelling of the left arm that has been approximately ongoing for 3 weeks. Started on IV antibiotics with cefazolin with
improvement. Unfortunately unable to obtain blood cultures as already on antibiotics and this would affect the yield. ID evaluated agree with cefazolin. As there remains a continued improvement in arm swelling will plan to transition to Keflex
500mg every 4 hours (5d) and please start prophylactic vancomycin 125mg BID till 10/21 (10d).
There was also complaints of shortness of breath with exertion without chest discomfort. Chest x-ray did show postradiation changes versus pneumonia as there was no cough there was low clinical suspicion for pneumonia and favored to be
postradiation changes. EKG also obtained which was normal sinus rhythm. Was seen cardiology which recommended 2D echocardiogram which demonstrated the squeezing function of 55 to 60%, normal diastolic function. Aortic sclerosis without stenosis.
Mild aortic regurgitation.
2d echo
CONCLUSIONS
Normal left ventricular size, wall thickness and systolic function. No regional
wall motion abnormalities are seen. LV ejection fraction is 55-60% by Warner's
method of discs. Normal diastolic function.
Normal right ventricular size and function.
Aortic sclerosis without stenosis. Mild aortic regurgitation.
DVT Study of LUE
IMPRESSION:
No evidence of deep venous thrombosis of the left upper extremity or interval change in comparison to recent prior study
CXR
IMPRESSION:
Subtle linear parenchymal stranding in the right upper lobe. Possible considerations include post radiation changes in the proper clinical setting, though the possibility of subtle pneumonia cannot be entirely excluded. Clinical correlation
recommended, as well as follow-up to assess stability or resolution.
Continue follow-up with outpatient PCP
Continue follow-up with outpatient hematology oncology
Discharge Plan
-
Patient Disposition: Home (Routine Discharge)
Discharge Diagnosis/Procedures: VTE, left-sided breast cancer s/p chemoradiation, hyperlipidemia
Condition: Good
Diet: As tolerated
Activity: As tolerated
Driving Restrictions: As prior to admission
Activity Restrictions/Additional Instructions:
Presenting for ongoing worsening redness and swelling of the left arm that has been approximately ongoing for 3 weeks. Started on IV antibiotics with cefazolin with improvement. Unfortunately unable to obtain blood cultures as already on
antibiotics and this would affect the yield. ID evaluated agree with cefazolin. As there remains a continued improvement in arm swelling will plan to transition to Keflex 500mg every 4 hours (5d) and please start prophylactic vancomycin 125mg BID
till 10/21 (10d).
There was also complaints of shortness of breath with exertion without chest discomfort. Chest x-ray did show postradiation changes versus pneumonia as there was no cough there was low clinical suspicion for pneumonia and favored to be
postradiation changes. EKG also obtained which was normal sinus rhythm. Was seen cardiology which recommended 2D echocardiogram which demonstrated the squeezing function of 55 to 60%, normal diastolic function. Aortic sclerosis without stenosis.
Mild aortic regurgitation.
2d echo
CONCLUSIONS
Normal left ventricular size, wall thickness and systolic function. No regional
wall motion abnormalities are seen. LV ejection fraction is 55-60% by Warner's
method of discs. Normal diastolic function.
Normal right ventricular size and function.
Aortic sclerosis without stenosis. Mild aortic regurgitation.
DVT Study of E
IMPRESSION:
No evidence of deep venous thrombosis of the left upper extremity or interval change in comparison to recent prior study
CXR
IMPRESSION:
Subtle linear parenchymal stranding in the right upper lobe. Possible considerations include post radiation changes in the proper clinical setting, though the possibility of subtle pneumonia cannot be entirely excluded. Clinical correlation
recommended, as well as follow-up to assess stability or resolution.
Continue follow-up with outpatient PCP
Continue follow-up with outpatient hematology oncology
Instructions: Cellulitis (skin infection) in adults - Discharge instructions
Referrals:
Ankita Gay DO [Family Provider] -
Raudel Pacheco MD [Active] - in one to two weeks
Prescriptions:
New
cephalexin 500 mg capsule
500 mg PO QID 5 Days Qty: 20 0RF
vancomycin [Vancocin] 125 mg capsule
125 mg PO BID 10 Days Qty: 20 0RF
Continued
celecoxib 200 mg capsule
200 mg PO HS
atenolol 25 mg tablet
25 mg PO HS
cyanocobalamin (vitamin B-12) 1,000 mcg Tablet
1,000 mcg PO DAILY
levothyroxine 88 mcg tablet
88 mcg PO DAILY
pantoprazole 40 mg tablet,delayed release (DR/EC)
40 mg PO BID
zolpidem 5 mg tablet
5 mg PO HSPRN PRN (Reason: sleep)
diphenhydramine-acetaminophen [Tylenol PM Extra Strength] 25-500 mg Tablet
2 tab PO HSPRN PRN (Reason: neuropathy)
rosuvastatin 5 mg tablet
5 mg PO HS
duloxetine 60 mg capsule,delayed release(DR/EC)
60 mg PO HS
Eliquis 2.5 mg tablet
2.5 mg PO BID
Discharge Orders:
Discharge Patient (As Directed); Ordered 10/13/23
Ordered By: Chucho Perea
Discharge Date and Time
Print Language: SI[place] LEONE[place]
[2023-10-13 14:40] VITALS: BP 105/77
--- NOTE | 2023-10-13 14:44 | CM ---
MD entered order for discharge.
Spoke with pt she is happy about discharge and her arm healing.
Griffin will drive her home.
Offered VN she declined need.
PLAN Home no needs
== END 2023-10-13 15:32 | disposition home or self-care (01) | DRG 603 ==
LOC: 3 WEST ACU 16:10
PROVIDERS: Registered Nurse; ADMITTING PHYSICIAN Hospitalist; EMERGENCY PHYSICIAN Student in an Organized Health Care Education/Training Program; FAMILY PHYSICIAN Internal Medicine; OTHER PHYSICIAN Internal Medicine Cardiovascular Disease; OTHER PHYSICIAN Internal Medicine Infectious Disease
DX: L03.114 Cellulitis of left upper limb (principal); N17.9 Acute kidney failure, unspecified; C50.912 Malignant neoplasm of unspecified site of left female breast; E78.5 Hyperlipidemia, unspecified; E03.9 Hypothyroidism, unspecified
CPT/HCPCS: 71045; 80048; 80053; 83880; 84443; 85025; 85027; 93005; 93306; 93971; 96374; 99285

== ENCOUNTER 2024-05-01 22:26 | Observation (INO) | payer OTHER, SELFPAY ==
[2024-05-01 13:09] VITALS: BP 130/88
--- NOTE | 2024-05-01 13:15 | ED.GENMED ---
ED Provider Triage
<Elgin Ortiz PA-C - Last Filed: 05/01/24 13:20>
-
Patient seen by provider in Triage?: Seen in Triage
78-year-old female with history of breast cancer anticoagulated presents in referral from [facility] doctor for CAT scan of chest to rule out PE. She has been short of breath over the past several days. No associated chest pain. She notes her
oxygen level dropped while ambulating
Vital signs are stable through triage looks nontoxic. Labs EKG and PE study ordered
Seen by provider in triage but warrants further assessment
History of Present Illness
<Elgin Ortiz PA-C - Last Filed: 05/01/24 13:20>
General
Chief Complaint: Breathing Problem
Time Seen by Provider: 05/01/24 17:11
<Raudel Farris MD - Last Filed: 05/04/24 05:52>
General
Source: patient
Exam Limitations: none
History of Present Illness
History of Present Illness:
78-year-old female complaining of shortness of breath with exertion. Progressive over 2 weeks. At this point she states it would be if she walked out to the car. Not walking around the room or to the bathroom. No pleuritic pain. No chest pain.
Was sent in primarily to rule out pulmonary emboli
Past History
<Elgin Ortiz PA-C - Last Filed: 05/01/24 13:20>
Past History
ED Past Medical History: Hypercholesterolemia and Other (Coronary artery dissection, PE/DVT)
ED Past Surgical History: Appendectomy and Other (Bilateral mastectomy Breast implants and then removal, Neuromuscular stimulator)
Social History
Tobacco: Former smoker
Alcohol: None
Personal:
Living: with family
Review of Systems
<Raudel Farris MD - Last Filed: 05/04/24 05:52>
Review of Systems
All Other Systems: Not applicable
Cardiac: Reports no symptoms
ABD/GI: Reports no symptoms
Phy Exam
<Raudel Farris MD - Last Filed: 05/04/24 05:52>
Physical Exam
Physical Exam:
GENERAL: Alert and oriented in no apparent distress
EYE: Orbits normal.
NECK: Supple
CARDIAC: Regular rate and rhythm without any obvious murmurs.
LUNGS: Clear breath sounds,normal
ABDOMEN: Soft, without focal tenderness or distention
NEUROLOGICAL: Alert and oriented , grossly non-focal
SKIN: Warm and dry, no rash or lesion, no discoloration, skin intact.
MUSCULOSKELETAL: No edema,no deformity.Good color
PSYCH: Normal and appropriate interaction.
Scores
<Raudel Farris MD - Last Filed: 05/04/24 05:52>
Heart Failure Risk
Heart Failure Risk Score: Not Applicable
Course
<Elgin Ortiz PA-C - Last Filed: 05/01/24 13:20>
Orders/Labs/Results
Orders:
Orders
05/01/24 13:11
Electrocardiogram (*1) Urgent
Reason for Study: Shortness of Breath
EKG- Treatment ONCE
05/01/24 13:14
CT Chest PE Study Urgent
Comment:
Reason For Exam: sob
05/01/24 13:23
Complete Blood Count/With Diff Urgent
Comprehensive Metabolic Panel Urgent
NT-proBNP Urgent
PT/INR [Prothrombin Time] Urgent
05/01/24 17:42
Troponin I Urgent
05/01/24 18:57
IV Insert/Care/Rem.- Treatment PRN
Aspirin Chewable [Low Strength Aspirin] 81 mg PO NOW STA
05/01/24 18:58
Cardiac Monitoring- Treatment ONCE
05/01/24 20:26
Pulse Ox/exercise [RESP] Urgent
Quantity: 1
05/01/24 20:41
Admit/Transfer Patient As Directed
Co-Sign Provider:
Level of Care: Observation services
Assign to:: Telemetry
Physician / Group: sindhu flores
Diagnosis: jones w/diaphoresis concern acs
Reason for Telemetry: Arrhythmia
Date to Stop Telemetry: 05/04/24
Time to Stop Telemetry: 11:00
Reason for Hospitalization: jones w/diaphoresis concern acs
Code Status As Directed
Resuscitation Status: Do not resuscitate
Reached after discussion with pt or family/Healthcare POA: Yes
Based on pt advanced directive or healthcare POA form: Yes
Decision communicated with: Per patient who states she is also donating her body to science to [facility]
DNR Bracelet Application ONCE
05/01/24 20:45
PRN Pain Medication Management As Directed
May give lesser potent ordered pain med per pt: Yes
preference::
Protocol:: Medication orders for pain may be administered in a
manner that supports deferring to patient preference
when the pt is:
- Requesting an ordered lesser potent pain medication.
Least to most potent pain medications are defined
as: acetaminophen < NSAID < tramadol < opioids
(morphine, oxycodone, hydromorphone).
- Requesting a lesser dose of the same medication IF
ORDERED.
- Requesting a less intrusive route of administration
if both routes are prescribed by the provider (PO <
IV).
05/01/24 20:[address] Non Medication Order As Directed
Physician Order: Please see order for walking pulse ox you may text me with results and if any symptoms
Above order entered?: Yes
05/01/24 22:00
Flush (0.9% Sodium Chloride) [Flush (Nss)] See Dose Instructions IV PER PROTOCOL
05/01/24 22:45
Troponin I Q6H
Atenolol [Tenormin] 25 mg PO HS
Diphenhydramine [Benadryl] 50 mg PO HSPRN PRN
Duloxetine Delayed Release [Cymbalta Delayed Release] 60 mg PO HS
Rosuvastatin Calcium [Crestor] 5 mg PO HS
Zolpidem Tartrate [Ambien] 5 mg PO HSPRN PRN
05/01/24 22:45
VTE Contraindication Routine
VTE Mechanical Device Contraindication: Medical Contraindication
Pharmocologic Contraindication: Medical Contraindication
Comment: Patient on Eliquis 2.5 mg twice daily
Activity As Directed
Activity Level: With Assistance
Intake/ Output As Directed
Frequency: Per unit guidelines
Vital Signs As Directed
Frequency: Per unit guidelines
Weight As Directed
Frequency: Daily
Pulse Ox/spot Check [RESP] Routine
Quantity: 1
Ot Eval And Treat Routine
Pt Eval And Treat Routine
Activity Level: With Assistance
05/02/24 05:00
Cardiovascular Evaluation IN AM
Complete Blood Count/With Diff IN AM
Comprehensive Metabolic Panel IN AM
Hgba1c [Glycohemoglobin (HgbA1c)] IN AM
TSH Reflex To Free T4 IN AM
Troponin I Q6H
05/02/24 06:00
EKG [Electrocardiogram (*1)] IN AM
Reason for Study: Shortness of Breath
Echo 2D MMode Color/Doppler IN AM
Reason for Study: sob
Levothyroxine [Synthroid] 88 mcg PO DAILY @ 0600
05/02/24 08:00
Apixaban [Eliquis] 2.5 mg PO BID
Cyanocobalamin [Vitamin B-12] 1,000 mcg PO DAILY
Pantoprazole [Protonix] 40 mg PO BID
05/04/24 11:00
DC Protocol for Telemetry ONCE
Abnormal Lab Results
05/01/24
13:23
RBC 3.95 L 10^6/uL
(4.20-5.40)
MCHC 31.9 L g/dL
(33.0-37.0)
RDW 15.5 H %
(11.5-14.5)
Lymphocytes % 19.8 L %
(20.5-51.1)
Monocytes % 9.8 H %
(1.7-9.3)
BUN 23 H mg/dl
(7-17)
Creatinine 1.1 H mg/dL
(0.6-1.0)
05/01/24 13:23
05/01/24 13:23
Vital Signs
Initial and Last Documented VS:
Initial Vital Signs
Temp Pulse Resp BP Pulse Ox
98.0 F 87 16 130/88 98
05/01/24 13:09 05/01/24 13:09 05/01/24 13:09 05/01/24 13:09 05/01/24 13:09
Last Documented Vital Signs
Temp Pulse Resp BP Pulse Ox
98.2 F 80 16 141/87 98
05/02/24 13:22 05/02/24 14:00 05/02/24 13:22 05/02/24 13:18 05/02/24 13:22
<Raudel Farris MD - Last Filed: 05/04/24 05:52>
Orders/Labs/Results
Orders:
Orders
05/01/24 13:11
Electrocardiogram (*1) Urgent
Reason for Study: Shortness of Breath
EKG- Treatment ONCE
05/01/24 13:14
CT Chest PE Study Urgent
Comment:
Reason For Exam: sob
05/01/24 13:23
Complete Blood Count/With Diff Urgent
Comprehensive Metabolic Panel Urgent
NT-proBNP Urgent
PT/INR [Prothrombin Time] Urgent
05/01/24 17:42
Troponin I Urgent
05/01/24 18:57
IV Insert/Care/Rem.- Treatment PRN
Aspirin Chewable [Low Strength Aspirin] 81 mg PO NOW STA
05/01/24 18:58
Cardiac Monitoring- Treatment ONCE
05/01/24 20:26
Pulse Ox/exercise [RESP] Urgent
Quantity: 1
05/01/24 20:41
Admit/Transfer Patient As Directed
Co-Sign Provider:
Level of Care: Observation services
Assign to:: Telemetry
Physician / Group: sindhu flores
Diagnosis: jones w/diaphoresis concern acs
Reason for Telemetry: Arrhythmia
Date to Stop Telemetry: 05/04/24
Time to Stop Telemetry: 11:00
Reason for Hospitalization: jones w/diaphoresis concern acs
Code Status As Directed
Resuscitation Status: Do not resuscitate
Reached after discussion with pt or family/Healthcare POA: Yes
Based on pt advanced directive or healthcare POA form: Yes
Decision communicated with: Per patient who states she is also donating her body to science to [facility]
DNR Bracelet Application ONCE
05/01/24 20:45
PRN Pain Medication Management As Directed
May give lesser potent ordered pain med per pt: Yes
preference::
Protocol:: Medication orders for pain may be administered in a
manner that supports deferring to patient preference
when the pt is:
- Requesting an ordered lesser potent pain medication.
Least to most potent pain medications are defined
as: acetaminophen < NSAID < tramadol < opioids
(morphine, oxycodone, hydromorphone).
- Requesting a lesser dose of the same medication IF
ORDERED.
- Requesting a less intrusive route of administration
if both routes are prescribed by the provider (PO <
IV).
05/01/24 20:[address] Non Medication Order As Directed
Physician Order: Please see order for walking pulse ox you may text me with results and if any symptoms
Above order entered?: Yes
05/01/24 22:00
Flush (0.9% Sodium Chloride) [Flush (Nss)] See Dose Instructions IV PER PROTOCOL
05/01/24 22:45
Troponin I Q6H
Atenolol [Tenormin] 25 mg PO HS
Diphenhydramine [Benadryl] 50 mg PO HSPRN PRN
Duloxetine Delayed Release [Cymbalta Delayed Release] 60 mg PO HS
Rosuvastatin Calcium [Crestor] 5 mg PO HS
Zolpidem Tartrate [Ambien] 5 mg PO HSPRN PRN
05/01/24 22:45
VTE Contraindication Routine
VTE Mechanical Device Contraindication: Medical Contraindication
Pharmocologic Contraindication: Medical Contraindication
Comment: Patient on Eliquis 2.5 mg twice daily
Activity As Directed
Activity Level: With Assistance
Intake/ Output As Directed
Frequency: Per unit guidelines
Vital Signs As Directed
Frequency: Per unit guidelines
Weight As Directed
Frequency: Daily
Pulse Ox/spot Check [RESP] Routine
Quantity: 1
Ot Eval And Treat Routine
Pt Eval And Treat Routine
Activity Level: With Assistance
05/02/24 05:00
Cardiovascular Evaluation IN AM
Complete Blood Count/With Diff IN AM
Comprehensive Metabolic Panel IN AM
Hgba1c [Glycohemoglobin (HgbA1c)] IN AM
TSH Reflex To Free T4 IN AM
Troponin I Q6H
05/02/24 06:00
EKG [Electrocardiogram (*1)] IN AM
Reason for Study: Shortness of Breath
Echo 2D MMode Color/Doppler IN AM
Reason for Study: sob
Levothyroxine [Synthroid] 88 mcg PO DAILY @ 0600
05/02/24 08:00
Apixaban [Eliquis] 2.5 mg PO BID
Cyanocobalamin [Vitamin B-12] 1,000 mcg PO DAILY
Pantoprazole [Protonix] 40 mg PO BID
05/04/24 11:00
DC Protocol for Telemetry ONCE
Abnormal Lab Results
05/01/24
13:23
RBC 3.95 L 10^6/uL
(4.20-5.40)
MCHC 31.9 L g/dL
(33.0-37.0)
RDW 15.5 H %
(11.5-14.5)
Lymphocytes % 19.8 L %
(20.5-51.1)
Monocytes % 9.8 H %
(1.7-9.3)
BUN 23 H mg/dl
(7-17)
Creatinine 1.1 H mg/dL
(0.6-1.0)
05/01/24 13:23
05/01/24 13:23
Vital Signs
Initial and Last Documented VS:
Initial Vital Signs
Temp Pulse Resp BP Pulse Ox
98.0 F 87 16 130/88 98
05/01/24 13:09 05/01/24 13:09 05/01/24 13:09 05/01/24 13:09 05/01/24 13:09
Last Documented Vital Signs
Temp Pulse Resp BP Pulse Ox
98.2 F 80 16 141/87 98
05/02/24 13:22 05/02/24 14:00 05/02/24 13:22 05/02/24 13:18 05/02/24 13:22
<Raudel Farris MD - Last Filed: 05/04/24 05:52>
MDM/Problems Addressed
Differential Diagnosis Includes:
Patient with no pulmonary emboli. Not in heart failure. No pneumonia. No pneumothorax. With exertional shortness of breath and diaphoresis exertional angina is a reasonable possibility and needs to be considered. Await troponin. Discussed
outpatient close follow-up versus admission with the patient. She prefers admission and definitive workup in the hospital
<Raudel Farris MD - Last Filed: 05/04/24 05:52>
*Pulse Oximetry
Patient hypoxic: no
*EKG
Interpreted by ED Provider?: Yes
Comparison EKG: no changes
Heart Rate: 79
Rate: normal
Rhythm: sinus
[place]: normal axis
Interval: normal interval
QRS Pattern: normal QRS
Ischemia: no ischemia
*Critical Care Note
Total Time (30-74mins, 75-104mins- exclusive of procedures): Not Applicable
Data Reviewed
Review of Other/Old Records Reveals: Labs and Records
<Raudel Farris MD - Last Filed: 05/04/24 05:52>
Update Note
Update Note:
Patient describing exertional shortness of breath with diaphoresis. No other explanation. Could be a anginal equivalent. Discussed inpatient versus outpatient follow-up. Patient is uncomfortable with outpatient management and would prefer
inpatient evaluation.
ED Attending Note
<Elgin Ortiz PA-C - Last Filed: 05/01/24 13:20>
-
Portions of this chart may have been created with voice recognition software.� Occasional wrong word or��sound alike� substitutions may have occurred due to the inherent limitations of voice recognition software.
Discharge Plan
Departure
Patient Disposition: Admit
Date of Disposition: 05/01/24
Time of Disposition: 19:03
Presentation/result/management discussed w/ accepting MD/DO: Hospitalist
Discharge Problem:
Exertional shortness of breath, Possible new onset angina
Interventions
Interventions:
*Risk Screen - Suicide Last Done: 05/01/24 13:09
*General Assessment Last Done: 05/01/24 21:30
*Neglect/Abuse Screening Last Done: 05/01/24 13:09
ED- Fall Risk Assessment Last Done: 05/01/24 21:30
*ED COVID-19 Vaccine History Last Done: 05/01/24 18:45
*Nursing Disposition Last Done: 05/01/24 23:30
ED- Cardiac Assessment Last Done: 05/01/24 21:30
ED- Pulmonary Assessment Last Done: 05/01/24 21:30
Discharge Date and Time
Discharge Date/Time: 05/01/24 23:30
[2024-05-01 13:51] LABS: ALT (SGPT) 19 U/L (0-35); AST (SGOT) 21 U/L (14-36); Albumin 4.3 g/dl (3.5-5.0); Alkaline Phosphatase 68 U/L (38-126); Blood Urea Nitrogen 23 mg/dl (7-17); Carbon Dioxide 29 mmol/L (22-30); Chloride 101 mmol/L (98-107); Glucose 92 mg/dl (70-99); Sodium 136 mmol/L (135-145); Total Bilirubin 0.6 mg/dl (0.2-1.3); Total Protein 6.9 g/dl (6.3-8.2); eGFR 51.75
[2024-05-01 13:52] LABS: % Basophils 0.3 % (0-2); % Eosinophils 1.6 % (0-6); % Immature Granulocytes 0.3 % (0-0.5); % Lymphocytes 19.8 % (20.5-51.1); % Monocytes 9.8 % (1.7-9.3); % Neutrophils 68.2 % (42.2-75.2); Absolute Eosinophils 0.1 10^3/uL (0-0.7); Absolute Lymphocytes 1.3 10^3/uL (1.2-3.4); Absolute Monocytes 0.6 10^3/uL (0.1-0.6); Absolute Neutrophils 4.3 10^3/uL (1.4-6.5); Hematocrit 38.3 % (37.0-47.0); Hemoglobin 12.2 g/dL (12.0-16.0); Mean Corp Hgb Conc. 31.9 g/dL (33.0-37.0); Mean Corpuscular Hgb 30.9 pg (27.0-31.0); Mean Platelet Volume 9.3 fL (7.4-10.4); Nucleated Red Blood Cells % 0 %; Platelet Count 243 10^3/uL (130-400); Red Blood Cell Count 3.95 10^6/uL (4.20-5.40); Red Cell Dist. Width 15.5 % (11.5-14.5); White Blood Cell Count 6.4 10^3/uL (4.8-10.8)
[2024-05-01 13:58] LABS: NT-proBNP 735 pg/ml
[2024-05-01 14:11] LABS: INR 0.87; PT 12.1 Sec (11.4-14.6)
[2024-05-01 16:56] VITALS: BP 151/93
[2024-05-01 18:17] LABS: Troponin I < 0.012 ng/ml
[2024-05-01 18:31] VITALS: BP 131/81
[2024-05-01 18:50] VITALS: BMI 33.0
[2024-05-01] MEDS: LOW STRENGTH ASPIRIN 81 MG PO (19:28)
--- NOTE | 2024-05-01 20:09 | HPS.HSE ---
Family Physician
-
Family Physician: Ankita Gay
Chief Complaint
-
Diaphoresis, BRENNAN
History of Present Illness
78-year-old female who lives at [facility] for the past 2 weeks she has been having dyspnea on exertion with diaphoresis to the point that she had her haircut shorter due to the dripping sweat. She denies any chest pain
or nausea during these episodes. Today she went down to the nurse practitioner at [facility] and was walking around the office with a pulse oximeter on she reports she walked around the small office approximately 3 times became short
of breath and diaphoretic with heart rate 123. She was unsure of her pulse ox. She was referred to the hospital for evaluation. She denies recent cold, cough, chest pain, palpitations, abdominal pain, nausea, vomiting, diarrhea, fever, chills,
sick contacts. She has past medical history of PE January 20242017 post breast cancer,DVT bilateral legs January 2024, Hypertension
Hypothyroidism,Former smoker, Left breast CA 2017 treated with chemo x 2, radiation, History of left breast implant removal (12/2022), Prophylactic right mastectomy(12/2022), Chronic left upper extremity lymphedema
TIA/carotid artery dissection s/p repair 2011, C. difficile times 05/18/2017, Peripheral neuropathy bilateral feet, Depression, GERD,HLD, Migraine headaches, Chronic back pain with current spinal stimulator,
Mild procedure April 05, 2024 L4-L5 Dr. Delgado,Insomnia, Large hiatal hernia, Osteoarthritis bilateral hands DIP joints.
Medical History
Past Medical History
Past Medical History: Reports Other
Additional Past Medical History:
PE January 20242017 post breast cancer
DVT bilateral legs January 2024
Hypertension
Hypothyroidism
Former smoker
Left breast CA 2017 treated with chemo x 2, radiation
History of left breast implant removal (12/2022)
Prophylactic right mastectomy(12/2022)
Chronic left upper extremity lymphedema
TIA/carotid artery dissection s/p repair 2011
C. difficile times 05/18/2017
Peripheral neuropathy bilateral feet
Depression
GERD
HLD
Migraine headaches
Chronic back pain with current spinal stimulator
Mild procedure April 05, 2024 L4-L5 Dr. Delgado
Insomnia
Large hiatal hernia
Osteoarthritis bilateral hands DIP joints
Past Surgical History: Reports Other
Additional Past Surgical History:
Carotid artery dissection 05/18/2017
History of left breast implant removal (12/2022)
Prophylactic right mastectomy(12/2022)
Mild procedure April 05, 2024 L4-L5 Dr. Delgado
Spinal stimulator
Social History
Tobacco: Former Smoker
Alcohol: None
Drug: None
Personal: Single
Living: Alone ([facility] independent)
Employment: Retired
Family History
Family History: Not pertinent
Allergies / Home Medications
Allergies reflects when Allergies were last updated in [facility].
Home Medications with original date entered in [facility]
Allergy/Medication List:
Allergies
Allergy/AdvReac Type Severity Reaction Status Date / Time
No Known Allergies Allergy Verified 05/01/24 13:10
Home Medications
apixaban 2.5 mg tablet (Eliquis) 2.5 mg PO BID Blood Clot Prevention/Tx 09/22/23
atenolol 25 mg tablet 25 mg PO HS Blood Pressure 09/22/23
celecoxib 200 mg capsule 200 mg PO HS pain 09/22/23
cyanocobalamin (vitamin B-12) 1,000 mcg tablet 1,000 mcg PO DAILY Supplement 09/22/23
diphenhydramine 25 mg-acetaminophen 500 mg tablet (Tylenol PM Extra Strength) 2 tab PO HSPRN PRN neuropathy 09/22/23
duloxetine 60 mg capsule,delayed release 60 mg PO HS pain/depression 09/22/23
levothyroxine 88 mcg tablet 88 mcg PO DAILY Thyroid 09/22/23
pantoprazole 40 mg tablet,delayed release 40 mg PO BID Gastrointestinal Issue 09/22/23
rosuvastatin 5 mg tablet 5 mg PO HS High Cholesterol 09/22/23
zolpidem 5 mg tablet 5 mg PO HSPRN PRN sleep 09/22/23
Review of Systems
-
History Source: Patient
A 12 point ROS was completed and negative except as noted: Yes
Constitutional: Denies Fever, Fatigue or Chills
EENT: Denies Sore Throat or Runny Nose
Respiratory: Reports Trouble Breathing (BRENNAN with diaphoresis); Denies Cough
Cardiac: Reports Diaphoresis (With walking); Denies Chest Pain, Palpitations or Syncope
Abdomen/GI: Denies Abdominal Pain, Nausea, Vomiting, Diarrhea, Constipated, Bloody Stools or Black Stools
: Denies Dysuria, Frequency, Flank Pain, Incontinence, Difficulty Voiding or Urgency
Musculoskeletal: Reports Edema (Chronic left arm lymphedema); Denies Joint Pain
Skin: Denies Itching or Rash
Neurological: Denies Dizzy, Headache or Weakness
Endocrine: Reports No Symptoms
Hematologic/Lymphatic: Reports No Symptoms
Psych: Reports Calm
Physical Exam
Vital Signs
Vital Signs
Temp Pulse Resp BP Pulse Ox
98.0 F 86 16 131/81 96
05/01/24 13:09 05/01/24 18:31 05/01/24 13:09 05/01/24 18:31 05/01/24 18:31
Physical Exam
General: Comfortable and Conversant; No Pain, Fever or Chills
HEENT: NormoCephalic, Anicteric, Moist mucous membranes, PERRLA, [place] Conjunctivae and No Ptosis
Respiratory: Clear; No Wheezes, Rales or Rhonchi
Cardiac: S1/S2 and Regular Rhythm; No Murmur, Rub, Gallop, Peripheral Edema or JVD
Breast: Deferred by me
GI: Soft, Non Tender, Non Distended, Normal Bowel Sounds and No Hepatosplenomegaly
Rectal: Deferred by Provider
Genito-urinary: Deferred by me
Musculoskeletal: No Clubbing, No Cyanosis, Edema, Left Upper Extremity (Chronic lymphedema from breast cancer/mastectomy) and Other (Osteoarthritis DIP joints of bilateral hands); No Edema, Right Upper Extremity, Edema, Left Lower Extremity or
Edema, Right Lower Extremity
Skin: Warm and Dry; No Rash or Jaundice
Neuro: AO x 3, No Motor Deficits, Nonfocal/grossly intact and No Sensory Deficits; No Slurred Speech, Facial Droop, Tremors or Sedated
Psych: Calm
Laboratory Results
-
05/01/24 13:23
05/01/24 13:23
Laboratory Results
PT 12.1 Sec (11.4-14.6) 05/01/24 13:23
INR 0.87 05/01/24 13:23
Total Bilirubin 0.6 mg/dl (0.2-1.3) 05/01/24 13:23
AST 21 U/L (14-36) 05/01/24 13:23
ALT 19 U/L (0-35) 05/01/24 13:23
Alkaline Phosphatase 68 U/L (38-126) 05/01/24 13:23
Troponin I < 0.012 ng/ml 05/01/24 17:42
Data Reviewed
-
Lab Data: Labs Reviewed by me
Impression/Plan
-
Impression/plan:
OBS telemetry
#BRENNAN/diaphoresis concern for ACS
-Consult [facility] cardiology
-Follow troponins, check EKG in a.m.
-Check lipid profile, HgbA1c
-Check 2D echo
-Continue atenolol 25 mg at bedtime, Eliquis 2.5 mg twice daily, Crestor 5 mg at bedtime
-Check ambulatory pulse ox-still pending was not completed in ER
-HOLD Celebrex 200 mg at [address] PE study:1. LARGE PARAESOPHAGEAL HIATAL HERNIA (mildly enlarged since 02/24/2023) with organoaxial positioning of the stomach in the hernia sac and diffuse gastric wall thickening suggesting gastritis.
2. Mild compressive subsegmental atelectasis and scarring in the medial right lower lobe adjacent to the large hiatal hernia. Mild dependent subsegmental atelectasis in both lower lungs.
3. Very severe discogenic degenerative disease at T12/L1.
4. Severe discogenic degenerative disease at T9/T10 through T11/T12.
5. Spinal stimulator in place with wires terminating in the posterior mid thoracic spinal canal.
6. Previous bilateral mastectomies.
2D echo 10/12/2023: EF 55 to 60%, normal LV S LVSF, no wall abnormalities, mild AR
#Pulmonary embolism/bilateral lower extremity DVTs 02/24/2023
#History of prior PEs 2017 suspected related to breast cancer
-Patient reports had hematological workup which was negative in 2018
-Continue Eliquis 2.5 mg twice daily
#CKD 3B
Creatinine1.1/123 prior 0.8�1.28 September 2023
-Follow BMP
#Osteoarthritis bilateral hands DIP joints
-HOLD Celebrex given workup for ACS
#Hypothyroidism
-Continue levothyroxine 88 mcg p.o. daily
-Check TSH with free T4 reflex
#Left breast CA 2017 treated with chemo x 2, radiation
#History of left breast implant removal (12/2022)
#Prophylactic right mastectomy(12/2022)
#Chronic left upper extremity lymphedema
#TIA/Carotid artery dissection s/p repair (2011)
-Continue statin
#HX C. diff x 2 in 2018
#Neuropathy peripheral to feet
-Continue Cymbalta 60 mg at bedtime
#Depression
-Continue duloxetine 60 mg p.o. at bedtime
#GERD
-Continue Protonix 40 mg twice daily
#HLD
-Continue Crestor 5 mg at bedtime
#Migraine headaches
-Patient reports has not had migraine headaches since being on prophylactic atenolol
-Continue atenolol 25 mg at bedtime
#Chronic back pain with current spinal stimulator
#Severe DDD T9-T12
-Recent MILD procedure April 05, 2024 L4-L5 Dr. Delgado
#Insomnia
Continue Ambien 5 mg at bedtime as needed
DVT prophylaxis
Continue current Eliquis 2.5 mg twice daily
DNR per patient
--- NOTE | 2024-05-01 20:49 | W.PN.UPDATE ---
Update Note
Progress Note Update
Patient seen in conjunction with STOCK TRACER. I concur with the findings on history and physical and has agree with the assessment and plan.
This is a 78-year-old female with past medical history significant for prior DVT PE on Eliquis, hypertension, hypothyroid, history of breast cancer presenting to the emergency department with subacute dyspnea on exertion.
She reports exertional dyspnea with any degree of activity including washing her hair or walking down or up a flight of stairs. She has no orthopnea or PND. She has no lower extremity edema. She denies exertional chest pain. She denies
palpitations or lightheadedness or dizziness. She denies any cough. She denies any history of asthma or COPD. She is currently a non-smoker. She has no known history of CHF. She denies any prior history of cardiac murmurs.
Patient did have a prior echo a year ago which showed normal EF with essentially mild AR.
She was seen by PMD today and was noted to be tachycardic and dyspneic with ambulation. Unclear if hypoxic.
Sent to ED.
In the ED she was normotensive with a blood pressure of 130/80 with pulse of 86 at rest. She was satting 96%. Afebrile. ECG shows a normal sinus rhythm without any acute ST or T wave changes slight peaking of T waves. Troponin was negative. BNP
was 700. CBC without anemia. Normal white count and platelets. Creatinine 1.[address] PE negative for PE. No acute infiltrates noted.
Assessment and plan
Patient with mostly exertional dyspnea that could be due to ischemic heart disease versus valvular disease, CHF or primary pulmonary process such as chronic pulmonary hypertension.
Admit to telemetry
Document oxygen with ambulation
Check peak flow
Continue Eliquis. Continue statin.
Check TSH
Echo
Cardiology consult as patient may need stress test
CODE STATUS is DNR
[2024-05-01 22:37] VITALS: BP 123/80
[2024-05-01 23:27] VITALS: BMI 31.2
[2024-05-01 23:30] VITALS: BP 147/92
[2024-05-01] MEDS: TENORMIN 25 MG PO (23:50)
[2024-05-01] MEDS: AMBIEN 5 MG PO (23:50)
[2024-05-01] MEDS: CRESTOR 5 MG PO (23:51)
[2024-05-01] MEDS: CYMBALTA DELAYED RELEASE 60 MG PO (23:51)
[2024-05-02] VITALS (7 sets, daily range): BP systolic 118–141; BP diastolic 82–93; PULSE 76; O2SAT 94–97; BMI 30.9
[2024-05-02] MEDS: ELIQUIS 2.5 MG PO ×2 (00:23→08:14)
[2024-05-02 00:58] LABS: Troponin I < 0.012 ng/ml
--- NOTE | 2024-05-02 01:16 | PTCARENOTE ---
Assumed care of patient for remainder of this shift. Patient resting comfortably in the bed, has no complaints at this time. Alert to self, place, and time. Denies difficulty breathing presently but does endorse dyspnea on exertion. NSR on telemetry
monitor. Apical heart rate regular. Lungs clear to auscultation bilaterally. Patient on room air with oxygen saturation 96%. DNR bracelet on. Left arm limb restriction bracelet in place. Call farley within reach. Plan of care discussed with patient.
Assessment ongoing.
[2024-05-02] MEDS: SYNTHROID 88 MCG PO (05:01)
[2024-05-02 05:40] LABS: ALT (SGPT) 16 U/L (0-35); AST (SGOT) 19 U/L (14-36); Albumin 3.7 g/dl (3.5-5.0); Alkaline Phosphatase 52 U/L (38-126); Blood Urea Nitrogen 18 mg/dl (7-17); Calcium 8.9 mg/dl (8.4-10.2); Carbon Dioxide 25 mmol/L (22-30); Chloride 104 mmol/L (98-107); Estimated Creatinine Clearance 58 ml/min; Glucose 100 mg/dl (70-99); HDL Cholesterol 56 mg/dl; LDL Cholesterol, Calculated 147 mg/dl; Potassium 4.5 mmol/L (3.5-5.1); Sodium 138 mmol/L (135-145); Total Bilirubin 0.6 mg/dl (0.2-1.3); Total Cholesterol 236 mg/dl (50-199); Total Protein 6.3 g/dl (6.3-8.2); Triglyceride 169 mg/dl (10-149); Very Low Density Lipoprotein 33 mg/dl (0-30); eGFR > 60.00
[2024-05-02 05:45] LABS: % Basophils 0.4 % (0-2); % Eosinophils 2.8 % (0-6); % Immature Granulocytes 0.2 % (0-0.5); % Lymphocytes 30.2 % (20.5-51.1); % Neutrophils 55.4 % (42.2-75.2); Absolute Eosinophils 0.1 10^3/uL (0-0.7); Absolute Lymphocytes 1.4 10^3/uL (1.2-3.4); Absolute Monocytes 0.5 10^3/uL (0.1-0.6); Absolute Neutrophils 2.6 10^3/uL (1.4-6.5); Hematocrit 35.5 % (37.0-47.0); Hemoglobin 11.7 g/dL (12.0-16.0); Mean Corpuscular Volume 94.2 fL (81.0-99.0); Mean Platelet Volume 9.6 fL (7.4-10.4); Nucleated Red Blood Cells % 0 %; Platelet Count 217 10^3/uL (130-400); Red Blood Cell Count 3.77 10^6/uL (4.20-5.40); Red Cell Dist. Width 15.4 % (11.5-14.5); White Blood Cell Count 4.6 10^3/uL (4.8-10.8)
[2024-05-02 05:48] LABS: Troponin I < 0.012 ng/ml
[2024-05-02 06:08] LABS: TSH Reflex To Free T4 0.03 uIU/ml (0.47-4.68)
[2024-05-02 07:19] LABS: Free T4 1.53 ng/dl (0.78-2.19)
[2024-05-02] MEDS: VITAMIN B-12 1000 MCG PO (08:14)
[2024-05-02] MEDS: PROTONIX 40 MG PO (08:14)
[2024-05-02 08:39] LABS: Glycohemoglobin (HgbA1c) 5.6 % (4.0-5.6)
--- NOTE | 2024-05-02 08:58 | PTCARENOTE ---
Pt's O2 sat 97% at rest. HR 80's. Ambulated 250 ft, (she walks fast, I asked her to slow down) O2 sat never dropped below 94%. HR 124 max. Pt zoran well, but then became slightly SOB at the end of the walk. It took a few minutes to recover, she was
diaphoretic as well. Raquel and Dr Haines aware.
--- NOTE | 2024-05-02 09:38 | CON.CAR ---
Addendum entered and electronically signed by Juan Haines MD 05/02/24 10:20:
I saw and examined the patient.
The FRONT END ALIGNMENT SPECIALIST's note was reviewed and I agree with the note.
Comment:
78-year-old female with hypertension, hyperlipidemia, prior breast cancer treated with radiation and chemotherapy, DVT/PE on Eliquis who presents with worsening dyspnea and diaphoresis on exertion. She reports that for the past 1 month when she
walks up a flight of stairs or has to walk far distances or up an incline, she experiences profound diaphoresis (so much so that she has had to cut her hair due to excessive sweating) and dyspnea. She denies chest discomfort, presyncope or syncope.
She does have palpitations with exertion. In the ED she underwent CT PE which was negative. Troponins have been negative x 3 and ECG reveals normal sinus rhythm with no ischemic changes. Last echocardiogram in September 2023 with normal BiV function
and aortic sclerosis. On exam, she is well-appearing with regular rate and rhythm, soft systolic murmur, no pedal edema, and clear lungs bilaterally. Labs are notable for creatinine 0.9, negative troponin x 3, and LDL 147. For her dyspnea on
exertion and diaphoresis, we will get a pharmacologic stress test. Even with ambulating the halls, her heart rate goes up to 120, so I worry that she would reach target heart rate without truly exerting herself. We will also update an
echocardiogram. We discussed that her shortness of breath may be in part due to her large hiatal hernia, for which I recommend she be evaluated by GI as an outpatient.
Original Note:
Consultation
Consultation Request
Date/Time Consultation Requested: 05/01/2024 22:45
Date/Time Consultation Performed: 05/02/2024 08:00
Requesting Provider: TRESA Teague
Performing Provider: TRESA Preston for Dr. Haines
Reason for Consultation: Exertional diaphoresis
Medical History
-
Chief Complaint: Exertional diaphoresis
History of Present Illness:
Anai Mojica is a 78-year-old female (planning to follow with Dr. Haines), with hypertension, dyslipidemia, prior left sided breast cancer (status post mastectomy, XRT, and chemotherapy), prophylactic right mastectomy, PE/DVT on apixaban, TIA in
the setting of carotid dissection, and hiatal hernia who presents with exertional diaphoresis. It has been getting worse for the past 2 weeks. She does not have any chest pain, nausea, syncope/presyncope. She saw the nurse practitioner at [facility]. While she was being evaluated for hypoxia, her heart rate was in the 120s while walking and she endorsed shortness of breath. There was concern for recurrent PE. Chest CT did not show PE. Primary service concerned for ACS so cardiology
was consulted. EKG does not show acute ischemia. Troponin <0.012 x 3.
Past Medical History
Past Medical History: CVA (TIA in the setting of carotid dissection), GERD, HTN, Hypercholesterolemia and Hypothyroidism
Past Surgical History: Other (Mastectomy)
Social History
Tobacco: Former Smoker (Socially in her 20s)
Alcohol: None
Drug: None
Personal:
Living: Assisted Living ([facility])
Employment: Retired
Family History
Family History: Reviewed & Not Pertinent (Denies early CAD and SCD)
Allergies / Home Medications
Allergy/AdvReac Type Severity Reaction Status Date / Time
No Known Allergies Allergy Verified 05/01/24 13:10
�Medication �Instructions �Recorded �Confirmed �Type
apixaban 2.5 mg tablet (Eliquis) 2.5 mg PO BID Blood Clot 09/22/23 05/01/24 History
Prevention/Tx
atenolol 25 mg tablet 25 mg PO HS Blood Pressure 09/22/23 05/01/24 History
celecoxib 200 mg capsule 200 mg PO HS pain 09/22/23 05/01/24 History
cyanocobalamin (vitamin B-12) 1,000 mcg PO DAILY Supplement 09/22/23 05/01/24 History
1,000 mcg tablet
diphenhydramine 25 2 tab PO HSPRN PRN neuropathy 09/22/23 05/01/24 History
mg-acetaminophen 500 mg tablet
(Tylenol PM Extra Strength)
duloxetine 60 mg capsule,delayed 60 mg PO HS pain/depression 09/22/23 05/01/24 History
release
levothyroxine 88 mcg tablet 88 mcg PO DAILY Thyroid 09/22/23 05/01/24 History
pantoprazole 40 mg tablet,delayed 40 mg PO BID Gastrointestinal Issue 09/22/23 05/01/24 History
release
rosuvastatin 5 mg tablet 5 mg PO HS High Cholesterol 09/22/23 05/01/24 History
zolpidem 5 mg tablet 5 mg PO HSPRN PRN sleep 09/22/23 05/01/24 History
Review of Systems
-
History Source: Patient
All other systems: Negative unless noted
Constitutional: Fatigue
EENT: No Symptoms
Respiratory: Trouble Breathing (Exertional)
Cardiac: Diaphoresis
Abdomen/GI: No Symptoms
: No Symptoms
Musculoskeletal: No Symptoms
Skin: No Symptoms
Neurological: No Symptoms
Endocrine: No Symptoms
Hematologic/Lymphatic: No Symptoms
Physical Exam
Vital Signs
Temp Pulse Resp BP Pulse Ox
98.4 F 69 18 118/82 18
05/02/24 07:00 05/02/24 06:00 05/02/24 07:00 05/02/24 02:30 05/02/24 07:00
Lab Results
05/02/24 05:00
05/02/24 05:00
Troponin I < 0.012 ng/ml 05/02/24 05:00
Seo-X-Opafajslrpt Pept 735 pg/ml 05/01/24 13:23
Physical Exam
General: Well Developed, Well Nourished, No Apparent Distress and Comfortable
HEENT: Normocephalic, Anicteric and Moist Mucous Membranes
Respiratory: Clear and Non Labored Respirations
Cardiac: S1/S2, Regular Rhythm and Murmur (II/)
Breast: Deferred by me
GI: Soft, Non Tender, Non Distended and Normal Bowel Sounds
Rectal: Deferred by Provider
Genito-urinary: No Costovertebral Tender
Musculoskeletal: No Clubbing, No Cyanosis and No Edema
Skin: Warm and Dry
Neuro: AO x 3
Hematologic/Lymphatic: No Lymphadenopathy
Psych: Calm
Impression / Plan
-
BACKGROUND: 78F with hypertension, dyslipidemia, prior left sided breast cancer (status post mastectomy, XRT, and chemotherapy), prophylactic right mastectomy, PE/DVT on apixaban, TIA in the setting of carotid dissection, and hiatal hernia who
presents with exertional diaphoresis
Primary heavy mobile equipment repairer: Dr. Haines
Exertional diaphoresis
-Worsening over the past 2 weeks with associated lower extremity weakness
-Chest pain-free
-No hypoxia while ambulating today
-Troponin <0.012 x 3
-Echocardiogram today
-Lexiscan nuclear stress test, she will likely reach target heart rate but cannot complete 6 minutes
Paraesophageal hiatal hernia, large on CT - per primary
Prior PE/DVT, recurrence of apixaban, now on lifelong apixaban, follows with oxygen tank filler Dr. Serrano
TIA, in the setting of carotid dissection, 2012, no residual deficits
Dyslipidemia, on rosuvastatin
Hypothyroidism, on levothyroxine
--- NOTE | 2024-05-02 09:40 | CM ---
Reviewed chart. Met with Mrs. Mojica to review discharge plans. She states prior to admission she resides with her spouse in a third floor apartment at [facility]. She states she has been there for five years. She states prior
to admission she was independent with ambulation and adls. She states she does not have any DME in the home. She states she has a prescription plan and uses [facility]. The discharge plan is to return home with her spouse when medically
stable.
--- NOTE | 2024-05-02 10:38 | PTOTSP ---
Patient demonstrates safe and independent mobility, no skilled PT needs at this time, will sign off.
--- NOTE | 2024-05-02 13:05 | PTCARENOTE ---
Report called to Sharon on floor, pt tolerated procedure well. Lexiscan Stress test completed by Cardiac Services team,refer to Cardiac Services Record for details.
--- NOTE | 2024-05-02 13:18 | PTCARENOTE ---
Pt just returned from nuclear stress test
--- NOTE | 2024-05-02 14:30 | W.PN.UPDATE ---
Update Note
Progress Note Update
Echocardiogram with normal biventricular size and systolic function, no RWMA, LVEF 61%, no VHD, no evidence of PH. Likely normal Lexiscan nuclear stress test with diaphragmatic attenuation and no evidence of ischemia. Her dyspnea and diaphoresis
on exertion may still be an anginal equivalent due to microvascular dysfunction. We will switch her atenolol to metoprolol 50 mg daily and see if this helps. If no improvement, we can uptitrate beta-colby and/or add on calcium channel colby.
I asked her to call our office in the next 1-2 weeks to let us know how she is feeling. She will also reach out to her GI doctor to see if they think this could be related to her hiatal hernia. Increase rosuvastatin to 10 mg daily for persistently
elevated LDL. She has an upcoming appointment with me on 06/26/2024 at 1pm.
--- NOTE | 2024-05-02 14:46 | W.PN.HOSP.TC ---
Today's Communication/Plan
-
Discharge
Assessment / Plan
Assessment / Plan
Gen-AAOx3, NAD
HEENT-NC, AT, anicteric, clear oral mm
Neck-supple
CV-reg, no M, +S1/S2
Lungs-clear B/L
Abd-soft, NT, ND
Ext-no edema
Musculoskeletal-no cyanosis, clubbing
Skin-warm and dry
Neuro-grossly non-focal
Psych-calm, cooperative
Exertional tachycardia, dyspnea -unclear etiology. Perhaps deconditioning is a contributing factor. She does not exercise. Recommend starting aerobic exercise program 3 days a week. She plans to start swimming.
No evidence of ischemia on stress test. Echocardiogram unremarkable. No pulmonary hypertension. No evidence of pulmonary embolism.
Not hypoxic on exertion. Does get sinus tachycardia and diaphoresis when walking.
Cardiology recommends changing beta-colby to metoprolol.
Okay for discharge today with outpatient follow-up.
History of VTE -continue Eliquis.
Hypothyroidism -continue levothyroxine.
History of TIA/carotid artery dissection
Peripheral neuropathy
Hyperlipidemia -rosuvastatin dose increased to 10 mg daily by cardiology given elevated LDL 147.
GERD
Obesity due to excess calories
DNR
Dispo -stable for discharge home today. Outpatient follow-up.
32 minutes spent in discharge process.
Anticipated Discharge: Today
Subjective/Interval History
-
Date of Service: May 02, 2024
Patient seen and examined. No complaints currently.
Objective Data
-
Labs:
Laboratory Results
05/02/24
05:00
WBC 4.6 L
Hgb 11.7 L
Hct 35.5 L
Plt Count 217
Sodium 138
Potassium 4.5
Chloride 104
Carbon Dioxide 25
BUN 18 H
Creatinine 0.9
Glucose 100 H
Calcium 8.9
Total Bilirubin 0.6
AST 19
ALT 16
Alkaline Phosphatase 52
Vital Signs:
Vital Signs
Temp Pulse Resp BP Pulse Ox
98.2 F 80 16 141/87 98
05/02/24 13:22 05/02/24 14:00 05/02/24 13:22 05/02/24 13:18 05/02/24 13:22
Review of Systems
-
History Source: Patient
All other systems: Reviewed and negative
--- NOTE | 2024-05-02 14:55 | W.DS.TRANS ---
DC Summary - Medical Imaging Technician
-
Discharge Instructions:
Discharge Diagnosis/Procedures Dyspnea on exertion, tachycardia
Diet Low Fat,Low Cholesterol
Activity As tolerated
Driving Restrictions As prior to admission
Bathing Restrictions None
Instructions:
Stand-Alone Forms:
Changes to Home Medications: Yes
Discharge Medications:
DC Medications w/original date entered in [facility] & other things you bake
apixaban 2.5 mg tablet (Eliquis) 2.5 mg PO BID Blood Clot Prevention/Tx 09/22/23
celecoxib 200 mg capsule 200 mg PO HS pain 09/22/23
cyanocobalamin (vitamin B-12) 1,000 mcg tablet 1,000 mcg PO DAILY Supplement 09/22/23
duloxetine 60 mg capsule,delayed release 60 mg PO HS pain/depression 09/22/23
levothyroxine 88 mcg tablet 88 mcg PO DAILY Thyroid 09/22/23
pantoprazole 40 mg tablet,delayed release 40 mg PO BID Gastrointestinal Issue 09/22/23
zolpidem 5 mg tablet 5 mg PO HSPRN PRN sleep 09/22/23
metoprolol succinate 50 mg tablet,extended release 24 hr 50 mg PO HS #30 tabs 05/02/24
rosuvastatin 10 mg tablet 10 mg PO HS #30 tabs 05/02/24
Home Medication Changes
Stop atenolol
Pending Results: No
== END 2024-05-02 15:30 | disposition home or self-care (01) ==
LOC: IVU 22:26
PROVIDERS: Clinical Nurse Specialist Family Health; Emergency Medicine; Physician Assistant; ADMITTING PHYSICIAN Internal Medicine; ATTENDING PHYSICIAN Hospitalist; CONSULT PHYSICIAN Student in an Organized Health Care Education/Training Program; EMERGENCY PHYSICIAN Emergency Medicine; FAMILY PHYSICIAN Internal Medicine
DX: R06.09 Other forms of dyspnea (principal); R00.0 Tachycardia, unspecified; R06.02 Shortness of breath; E78.00 Pure hypercholesterolemia, unspecified; R61 Generalized hyperhidrosis; K44.9 Diaphragmatic hernia without obstruction or gangrene; M19.042 Primary osteoarthritis, left hand; M19.041 Primary osteoarthritis, right hand; G43.909 Migraine, unspecified, not intractable, without status migrainosus; G47.00 Insomnia, unspecified; G89.29 Other chronic pain; K21.9 Gastro-esophageal reflux disease without esophagitis; G62.9 Polyneuropathy, unspecified; F32.A Depression, unspecified; I89.0 Lymphedema, not elsewhere classified; I12.9 Hypertensive chronic kidney disease with stage 1 through stage 4 chronic kidney disease, or unspecified chronic kidney disease; N18.32 Chronic kidney disease, stage 3b; E03.9 Hypothyroidism, unspecified; J98.11 Atelectasis; M51.35 Other intervertebral disc degeneration, thoracolumbar region; I25.10 Atherosclerotic heart disease of native coronary artery without angina pectoris; E66.09 Other obesity due to excess calories; Z86.718 Personal history of other venous thrombosis and embolism; Z86.711 Personal history of pulmonary embolism; Z87.891 Personal history of nicotine dependence; Z90.49 Acquired absence of other specified parts of digestive tract; Z96.82 Presence of neurostimulator; Z79.1 Long term (current) use of non-steroidal anti-inflammatories (NSAID); Z79.890 Hormone replacement therapy; Z79.01 Long term (current) use of anticoagulants; Z85.3 Personal history of malignant neoplasm of breast; Z92.21 Personal history of antineoplastic chemotherapy; Z86.73 Personal history of transient ischemic attack (TIA), and cerebral infarction without residual deficits; Z90.13 Acquired absence of bilateral breasts and nipples; Z66 Do not resuscitate; Z68.30 Body mass index [BMI] 30.0-30.9, adult
CPT/HCPCS: 71275; 78452; 80053; 80061; 83036; 83880; 84439; 84443; 84484; 85025; 85610; 93005; 93017; 93306; 97162; 97165; 99285; A9500; G0378; J2785; Q9967

== ENCOUNTER → 2024-07-05 07:06 | Outpatient (REF) | payer OTHER, SELFPAY | LOC: RAD 07:06 | PROVIDERS: ATTENDING PHYSICIAN Student in an Organized Health Care Education/Training Program; FAMILY PHYSICIAN Internal Medicine | DX: R29.898 Other symptoms and signs involving the musculoskeletal system (principal) | CPT/HCPCS: 93922 ==